=== PATIENT | male | born 1955 | race African-American/Black ===

== ENCOUNTER 2016-06-09 02:14 | Day surgery (SDC) | payer OTHER ==
[2016-06-09] MEDS ORDERED: 1/2 NS 500 ML ONE (08:21)
[2016-06-09] MEDS ORDERED: KEFZOL 1 GM/D5W 50 ML ONE (08:21)
[2016-06-09] MEDS ORDERED: NS 1,000 ML ONE ×2 (11:58→12:07)
[2016-06-09] MEDS ORDERED: HEPARIN ONE ×2 (11:58→12:06)
[2016-06-09] MEDS ORDERED: XYLOCAINE 1%/EPI 1:100,000 ONE (12:38)
[2016-06-09] MEDS ORDERED: DIPRIVAN 1% ONE (14:07)
[2016-06-09] MEDS ORDERED: FENTANYL ONE (14:11)
--- NOTE | 2016-06-09 14:49 | OPERATIVE NOTE ---
PROCEDURE DATE: 06/09/2016 PROCEDURES: Thrombectomy AV graft with revision by translocating the distal basilic vein to the venous limb of the graft. SURGEON: Fernando Soto MD. INDUSTRIAL MANUFACTURING TECHNICIAN: Kelly. PREOPERATIVE DIAGNOSIS: Thrombosis left forearm arteriovenous graft (chronic kidney disease 5). POSTOPERATIVE DIAGNOSIS: Thrombosis left forearm arteriovenous graft (chronic kidney disease 5). INDICATIONS: This is a 61-year-old who has a left forearm arteriovenous graft. The venous end is occluded and cannot be salvaged. He is sent for revision thrombectomy and revision. The preoperative imaging showed his basilic vein to be patent. A branch going down below the antecubital fossa on the ulnar side of the graft. DESCRIPTION OF PROCEDURE: After satisfactory general anesthesia was achieved, the left arm was prepped and draped in a sterile fashion. We made a vertical incision in the antecubital fossa. Dissected down to the anastomosis of the artery to the graft, and the vein to the graft. There was a cephalic vein noted. It did progress underneath the arterial limb of the graft. The sclerotic and draining vein from the venous end was also noted. We actually gave the patient 8000 units of heparin. We took the graft off the vein. We attempted to see if the cephalic vein was patent, because it came right down to the graft. We tried to pass a probe as well as a 3 Fish, and it would not traverse the cephalic vein just above the antecubital crease. The cephalic vein was not being adequate runoff vein. The basilic vein, however, had been shown to be patent up the arm by ultrasound preop. It also showed a branch going down below the antecubital crease. So, it was felt we could mobilize that branch and swing it over and translocate it over to the graft to serve as our new draining vein. So we made an incision on the ulnar side of the arm, parallel to the one that we had made in the mid antecubital crease. We identified the basilic vein and followed it down to below the elbow. The vein was marked so we would not twist it. We obtained enough length to swing over to the graft and we ligated the branches off that vein. After we had ligated the branches, we transected it distally, suture ligating the distal end. We then mobilized it up to the proximal end of the incision. I did irrigate it with heparinized saline with proximal occlusion to allow the vein to dilate and check for any bleeding points. He was hemostatic. We then passed a Judith clamp from the more medial incision to the ulnar incision and delivered the vein graft through the tunnel without twisting it. We then, after we had thrombectomized the graft using first a 3 then a 4 Fish with vigorous flow, we then cut the vein on its anterior aspect to match the length of the graft. We then used a 5-0 Prolene with HS-7 needle and attached the toe of the vein to the heel of the graft, and then used the stitch first on one side, coming around the heel of the vein and the toe of the graft and then using the other one to meet it. Just prior to finishing the anastomosis, we then allowed flow again in the graft and it remained excellent. We then finished the anastomosis and flow was established. We did feel flow in the draining vein. The anastomosis was hemostatic. We irrigated out the wounds. We then closed the subcutaneous tissue at both incisions with 3-0 Polysorb interrupted stitches. We closed the skin with each of the 4-0 Polysorb subcuticular stitch. Telfa and sterile op-sites, followed by Kerlix was applied. He tolerated it well. Was sent to the recovery room in satisfactory condition.
[2016-06-09] MEDS ORDERED: NEO-SYNEPHRINE ONE (14:59)
[2016-06-09] MEDS ORDERED: XYLOCAINE-MPF 2% ONE (14:59)
[2016-06-09] MEDS ORDERED: NS 500 ML ONE (14:59)
[2016-06-09] MEDS ORDERED: ZOFRAN IV PRN (15:26)
[2016-06-09] MEDS ORDERED: NORCO-10 PO PRN (15:26)
[2016-06-09 16:30] VITALS: BP 158/93
--- NOTE | 2016-06-12 10:57 | VASCULAR LAB ---
DATE: 06/09/2016 PROCEDURE PERFORMED: Left upper extremity duplex ultrasound of the superficial veins. REFERRING PHYSICIAN: Dr. Soto PHYSICAL THERAPY MANAGER: Dedra Marks RVT INDICATION: 1. Preoperative examination (ICD-10 Z01.818). 2. End stage renal disease (ICD-10 N18.6). FINDINGS: The patient had a dual brachial artery in the left upper extremity. The first branch of the brachial artery measured 4.5 mm. The second branch measured 5.5 mm in diameter. The basilic vein in the left medial arm measured 2.3 to 7.8 mm in diameter. In the forearm, it measured 1.0 to 2.1 mm in diameter. The left cephalic vein was not measured.
== END 2016-06-09 16:15 | disposition home or self-care (01) ==
LOC: UNDOADMIN 02:14 → SURHOLD 02:14 → OPS 02:14 → EDSTATUS 11:00 → OPS 16:15 → UNDODISIN 16:15
PROVIDERS: ATTEND Surgery
DX: T82.868A Thrombosis due to vascular prosthetic devices, implants and grafts, initial encounter (principal); E11.22 Type 2 diabetes mellitus with diabetic chronic kidney disease; I12.9 Hypertensive chronic kidney disease with stage 1 through stage 4 chronic kidney disease, or unspecified chronic kidney disease; N18.4 Chronic kidney disease, stage 4 (severe); Z99.2 Dependence on renal dialysis; E78.00 Pure hypercholesterolemia, unspecified; I25.10 Atherosclerotic heart disease of native coronary artery without angina pectoris; I25.2 Old myocardial infarction; Z95.1 Presence of aortocoronary bypass graft; Z90.3 Acquired absence of stomach [part of]; Z96.642 Presence of left artificial hip joint; Z87.11 Personal history of peptic ulcer disease; Z87.891 Personal history of nicotine dependence; Z79.84 Long term (current) use of oral hypoglycemic drugs; Z79.899 Other long term (current) drug therapy; Z79.82 Long term (current) use of aspirin; Z83.3 Family history of diabetes mellitus; Z82.49 Family history of ischemic heart disease and other diseases of the circulatory system
CPT/HCPCS: 82948; 88304; J0690; J1644; J2370; J3010; J7030; J7040

== ENCOUNTER 2016-06-11 06:44 | Emergency (ER) | payer OTHER ==
[2016-06-11 11:28] VITALS: BP 181/108
--- NOTE | 2016-06-11 11:58 | PROVIDER DOCUMENTATION ---
HPI-General Adult - General Chief Complaint: General Adult Stated Complaint: POST OP COMPLAINT Time Seen by Provider: 06/11/16 07:35 Source: patient Allergies/Adverse Reactions: Patient Allergies Allergy/AdvReac Type Severity Reaction Status Date / Time No Known Allergies Allergy Verified 06/11/16 07:26 Home Medications: Home Medication List Medication Instructions Recorded Confirmed Last Taken Type Aspirin [Aspirin EC] 81 mg PO DAILY 06/10/14 03/31/15 06/09/16 06:30 History 81 Furosemide 40 mg PO BID 06/10/14 04/05/15 06/09/16 06:30 History 40 Glipizide E.r. [Glucotrol Xl] 5 mg PO DAILY 06/10/14 04/05/15 06/09/16 06:30 History 5 LISINOpril [Prinivil] 10 mg PO DAILY 06/10/14 04/05/15 06/09/16 06:30 History 10 Pantoprazole [Protonix] 40 mg PO DAILY@0700 06/10/14 04/05/15 06/09/16 06:30 History 40 Carvedilol 25 mg PO BID 06/19/14 04/05/15 06/09/16 06:30 History 25 ATORVAstatin [Lipitor] 40 mg PO QHS 09/15/14 04/05/15 06/08/16 22:00 History 40 Calcium Carbonate Chew [Tums] 500 mg PO DAILY 03/31/15 04/05/15 06/09/16 06:30 History 500 Folic Acid/Vit Bcomp,C [Dialyvite 0.8 mg PO DAILY 03/31/15 04/05/15 06/09/16 06: 30 History 800 Tablet] 0.8 Hydrocodone/Acetaminophen [[place] 1 each PO Q4H PRN PRN #20 tablet 06/09/16 Unknown Rx 10-325 Tablet] - History of Present Illness -Gen Adult Nature of Presenting Problems: Pt is a 61 yom who came to the ED with a cc of AV fistula complications. Pt reports he had surgery on June 09, 2016. Pt reports his AV fistula is malfunctioning. Location of Pain/Injury: reports: upper extremity (left forearm AV fistula) Pain Radiation: reports: no radiation Quality of Pain: reports: none Onset/Duration: reports: unsure Timing: reports: still present Context/Activities at Onset: reports: none Modifying Factors: improves with: nothing Associated Symptoms: reports: denies symptoms Similar Symptoms Previously?: No Recently seen or treated by another doctor?: No Review of Systems - Adult - REVIEW OF SYSTEMS - ADULT Constitutional: denies: chills, fever Eyes: denies: blurred vision, double vision Cardiovascular: denies: orthopnea, poor circulation Hematologic/Lymphatic: reports: other (AV fistula). denies: low blood count, prolonged bleeding Past History - Adult - PAST MEDICAL HISTORY-ADULT Review of Records: reports: Old Records Reviewed, Nursing Assessment Review Major Childhood Illnesses: reports: denies history Cardiovascular: reports: HTN Respiratory: reports: denies history Gastrointestinal: reports: denies history Obstetrical/Gynecological: reports: denies history Genitourinary: reports: kidney disease Musculoskeletal: reports: denies history Neurological: reports: CVA Endocrine/Immune: reports: Diabetes Other Conditions: reports: denies history - PRIOR SURGERIES/PROCEDURES Surgical/Procedure History: reports: CABG, hernia repair, other (total hip replacement) - IMMUNIZATION STATUS Childhood Immunizations: See Nurse Assessment Flu Vaccine: See Nurse Assessment - FAMILY HISTORY Family History: reviewed, not pertinent Physical Exam-General - PHYSICAL EXAM-ADULT Initial Vital Signs Reviewed: Yes - CONSTITUTIONAL General Appearance: appears well, alert - EYES Eyes: PERRL/EOMI, pink conjunctivae, fundi clear, no AV nicking - HEAD, EARS, NOSE, MOUTH & THROAT HENMT: normocephalic/atraumatic, moist mucous membranes, normal ENT inspection, TMs normal, pharynx normal - NECK Neck: non-tender - RESPIRATORY Respiratory: chest non-tender, lungs clear, normal breath sounds - CARDIOVASCULAR Cardiovascular: normal peripheral pulses, regular rate, rhythm, no edema, no gallop, no JVD, no murmur - GASTROINTESTINAL (ABDOMEN) Abdominal Exam: normal bowel sounds - LYMPHATIC Lymphatic: no adenopathy - MUSCULOSKELETAL Back Exam: normal inspection Extremity: swelling, other (AV fistula) - SKIN Integumentary: normal color, normal turgor - NEUROLOGIC Neurologic: grossly normal - PSYCHIATRIC Psych/Mental Status: normal mood/affect, normal thought content, normal thought process, oriented x 3 Progress - PLAN OF CARE/RESULTS Progress/Plan/Lab Results: Vital Signs - 24 hr 06/11/16 06/11/16 06/11/16 06:52 09:25 09:44 Temperature 98.2 F Pulse Rate 77 74 66 Respiratory 18 21 21 Rate Blood Pressure 179/102 180/108 158/98 O2 Sat by Pulse 100 99 100 Oximetry 06/11/16 11:00 Temperature Pulse Rate 71 Respiratory 23 Rate Blood Pressure 181/108 O2 Sat by Pulse 99 Oximetry - REASSESSMENT Reassessment #1 Time Reassessed: 11:45 (Dr. Combs discussed with the family about the procedure and that Dr. Rankin will see him in the morning. ) Status: unchanged - CONSULTS/PCP/HOSPITALIST Notification #1 *Consult/PCP/Hospitalist*: Dr. Rankin Time Discussed: 11:43 (discussed to put on a kerlix wrap on pt and will see the pt in the morning) Reason/Comments: was made aware of pt condition Consult Disposition: F/U in office Departure - Departure Time of Disposition Order: 12:07 DIAGNOSIS: Dialysis AV fistula malfunction Qualifiers: Encounter type: initial encounter Qualified Code(s): T82.590A - Other mechanical complication of surgically created arteriovenous fistula, initial encounter Disposition: HOME 01 Certified Medical Emergency: Emergent Condition: Stable Attestation - Scribe Verification/Attestation Scribe:: Christiane Dupree Acting as Scribe for:: Jamari Combs Scribe documention review:: This chart was documented by a scribe and accurately reflects the service the provider performed and the decisions made by the provider.
== END 2016-06-11 12:47 | disposition home or self-care (01) ==
LOC: ED 06:44
DX: T82.590A Other mechanical complication of surgically created arteriovenous fistula, initial encounter (principal); I10 Essential (primary) hypertension; E11.9 Type 2 diabetes mellitus without complications; Z79.82 Long term (current) use of aspirin; Z79.899 Other long term (current) drug therapy; Z86.73 Personal history of transient ischemic attack (TIA), and cerebral infarction without residual deficits; Z95.1 Presence of aortocoronary bypass graft; Z96.649 Presence of unspecified artificial hip joint

== ENCOUNTER 2016-06-12 12:13 | Day surgery (SDC) | payer OTHER ==
[2016-06-12] MEDS ORDERED: 1/2 NS 500 ML ONE (12:48)
[2016-06-12] MEDS ORDERED: KEFZOL 1 GM/D5W 50 ML ONE (12:49)
[2016-06-12] MEDS ORDERED: REGLAN ONE (13:14)
[2016-06-12] MEDS ORDERED: PEPCID ONE (13:14)
[2016-06-12] MEDS ORDERED: HEPARIN ONE ×2 (13:57→15:40)
[2016-06-12] MEDS ORDERED: KEFZOL ONE (13:57)
[2016-06-12] MEDS ORDERED: MARCAINE 0.25% PF/EPI 1:200,000 ONE (13:57)
[2016-06-12] MEDS ORDERED: NS 2,000 ML ONE (13:57)
[2016-06-12 14:09] LABS: HEMATOCRIT 30.1 % (42.0-52.0); HEMOGLOBIN 9.6 g/dL (14.0-18.0); MCH 30.1 PG (27-31); MCHC 31.9 g/dL (33-37); MCV 94.4 FL (81-99); MPV 10.2 FL (7.4-10.4); RBC 3.19 XMIL (4.7-6.1)
[2016-06-12 14:30] LABS: CALCIUM 7.8 mg/dL (8.8-10.2); POTASSIUM 4.7 mmol/L (3.5-5.1)
[2016-06-12] MEDS ORDERED: DIPRIVAN 1% ONE (15:20)
[2016-06-12] MEDS ORDERED: XYLOCAINE-MPF 2% ONE (15:40)
[2016-06-12] MEDS ORDERED: ZOFRAN IV PRN (15:45)
[2016-06-12] MEDS ORDERED: NORCO-10 PO PRN ×2 (15:45)
[2016-06-12] MEDS ORDERED: NORCO-10 ONE (15:47)
--- NOTE | 2016-06-12 15:51 | OPERATIVE NOTE ---
PROCEDURE DATE: 06/12/2016 PROCEDURE: Thrombectomy left basilic vein and arteriovenous graft. SURGEON: Fernando Soto MD SPORTS OFFICIAL: MICHAEL Cartwright PREOPERATIVE DIAGNOSIS: Thrombosis left forearm arteriovenous graft. POSTOPERATIVE DIAGNOSIS: Thrombosis of draining left basilic vein and arteriovenous graft. DESCRIPTION OF PROCEDURE: Satisfactory general anesthesia was achieved. The left arm was prepped and draped in a sterile fashion. We anesthetized the skin 0.25 Marcaine with epinephrine and opened the mid line incision bisecting the antecubital fossa. We gave the patient 9000 units of heparin systemically. We divided the subcutaneous stitches, exposed the recently revised venous anastomosis. We made a transverse graftotomy in the ulrich of the graft. We passed a 3 Fish up into the basilic vein and extracted clot. We did that until we got back bleeding. I then dilated it again with a 2, 2.5, 3, 3.5, and even a 4 mm probe going through the anastomosis. The 3.5 was probably as big as we needed to pass through that, but it did go. We then passed the 4 Fish around through the arterial anastomosis and extracted clot until we got arterial flow, which occurred after the first passed and then even better after the second pass removing fresh clot from the graft. After extracting no more clot, we clamped off the graft with a DeBakey clamp. We then once again passed a 3 down the venous end, dilated again up to 3.5. We did get some back bleeding. We then closed the graftotomy with interrupted 6-[address] suture. Flow was established. We then irrigated out the wound with Kefzol-impregnated saline, placed 3-0 Polysorb in the subcutaneous tissue and closed the skin with a 4-0 Polysorb subcuticular stitch. Telfa and sterile OpSite was applied. He tolerated it well, was sent to the recovery room in satisfactory condition.
[2016-06-12 16:17] VITALS: BP 151/91
[2016-06-12] MEDS ORDERED: LIPITOR PO SCH (21:00)
[2016-06-12] MEDS ORDERED: CARVEDILOL 25 MG PO SCH (21:00)
[2016-06-12] MEDS ORDERED: LASIX PO SCH (21:00)
[2016-06-13] MEDS ORDERED: PROTONIX PO SCH (07:00)
[2016-06-13] MEDS ORDERED: GLUCOTROL XL PO SCH (09:00)
[2016-06-13] MEDS ORDERED: NEPHRO-VITE PO SCH (09:00)
[2016-06-13] MEDS ORDERED: TUMS PO SCH (09:00)
[2016-06-13] MEDS ORDERED: PRINIVIL PO SCH (09:00)
[2016-06-13] MEDS ORDERED: ASPIRIN EC PO SCH (09:00)
== END 2016-06-12 16:30 | disposition home or self-care (01) ==
LOC: OR 12:13
PROVIDERS: ATTEND Surgery
DX: T82.868A Thrombosis due to vascular prosthetic devices, implants and grafts, initial encounter (principal); I12.9 Hypertensive chronic kidney disease with stage 1 through stage 4 chronic kidney disease, or unspecified chronic kidney disease; N18.4 Chronic kidney disease, stage 4 (severe); E11.9 Type 2 diabetes mellitus without complications; E78.00 Pure hypercholesterolemia, unspecified
CPT/HCPCS: 80048; 85027; 88304; J0690; J1644; J7030

== ENCOUNTER 2019-02-07 18:57 | Observation (INO) ==
[2019-02-07] MEDS ORDERED: ASPIRIN PO ONE (19:15)
[2019-02-07] MEDS ORDERED: NITROGLYCERIN TOP ONE (19:34)
[2019-02-07] MEDS ORDERED: MORPHINE IV ONE (19:34)
[2019-02-07] MEDS ORDERED: ZOFRAN IV ONE (19:35)
[2019-02-07 19:44] LABS: BASO# 0.03 X1000 (0.0-0.2); BASO% 0.3 % (0.0-0.8); EOS# 0.15 X1000 (0.0-0.7); EOS% 1.6 % (0.0-10.0); HEMATOCRIT 34.9 % (42.0-52.0); HEMOGLOBIN 11.3 g/dL (14.0-18.0); IMM GRAN# 0.01 X1000 (0.0-0.04); IMM GRAN% 0.1 % (0.0-0.5); LYMPH# 0.71 X1000 (1.2-3.4); LYMPH% 7.5 % (20.5-51.1); MCH 27.9 PG (27-31); MCHC 32.4 g/dL (33-37); MCV 86.2 FL (81-99); MONO% 6.3 % (1.7-9.3); MPV 11.1 FL (7.4-10.4); NEUT# 7.98 X1000 (1.4-6.5); NEUT% 84.2 % (42.2-75.2); PLT 164 X1000 (130-400); RBC 4.05 XMIL (4.7-6.1); RDW 14.4 % (11.5-14.5); WBC 9.48 X1000 (4.8-10.8)
[2019-02-07 20:09] LABS: INR 1.15; PROTIME 15.3 Seconds (11.0-16.0)
[2019-02-07 20:10] LABS: PTT 33.1 Seconds (22.3-41.8)
--- NOTE | 2019-02-07 20:14 | PROVIDER DOCUMENTATION ---
This chart was entered by Cuca Souza Scribe, acting as scribe for José Luis Caal MD. HPI-Chest Pain - General Chief Complaint: Chest Pain Stated Complaint: N/V/ Time Seen by Provider: 02/07/19 19:16 Source: patient Allergies/Adverse Reactions: Patient Allergies Allergy/AdvReac Type Severity Reaction Status Date / Time No Known Allergies Allergy Verified 02/07/19 19:46 Home Medications: Home Medication List Medication Instructions Recorded Confirmed Last Taken Type Aspirin [Aspirin EC] 81 mg PO DAILY 06/10/14 02/07/19 07/31/18 08:00 History Glipizide E.r. [Glucotrol Xl] 10 mg PO DAILY 06/10/14 02/07/19 07/31/18 08:00 History Pantoprazole [Protonix] 40 mg PO DAILY@0700 #0 tablet 07/05/16 02/07/19 Unknown Rx Calcium Carbonate Chew [Tums] 4 tab PO DAILY 10/11/16 02/07/19 07/31/18 08:00 History Calcium Acetate 3 cap PO TID 07/31/18 02/07/19 07/31/18 21:00 History Folic Acid/Vit B Complex and C 0.8 mg PO DAILY 07/31/18 02/07/19 07/31/18 08:00 History [Dialyvite 800 Tablet] LISINOpril [Prinivil] 10 mg PO DAILY 07/31/18 02/07/19 Unknown History Amlodipine Besylate 5 mg PO DAILY 02/07/19 02/07/19 Unknown History Atorvastatin Calcium 40 mg PO DAILY 02/07/19 02/07/19 Unknown History Furosemide [Lasix] 40 mg PO DAILY 02/08/19 02/08/19 Unknown History - History of Present Illness-CP Nature of Presenting Problem: pt is a 63 yr old male presenting with complaint of substernal chest pain onset last night, resolved this AM, pain returned approx 1600 today, when pain returned pt reports nausea, vomiting, shortness of breath and diaphoresis. pt admits significant cardiac hx, had MUGA scan today. pt denies nitro, admits 1 81mg ASA today. Location: reports: substernal Chest Pain Radiation: reports: no radiation Quality of Pain: reports: sharp Severity in ED: moderate (7/10) Onset/Duration: last night Timing: intermittent Context/Activities at Onset: reports: rest Modifying Factors: improves with: nothing Associated Symptoms: reports: diaphoresis, nausea, shortness of breath, vomiting Nitro Today/Relief: no nitro taken today Aspirin Treatment Today: 81 mg x 1, provided at home Prior Chest Pain/Cardiac Workup: reports: heart attack (multiple), other (MUGA today) Similar Symptoms Previously?: No Recently Seen Here or By Another Healthcare Provider: Yes Review of Systems - Adult - REVIEW OF SYSTEMS - ADULT Constitutional: denies: chills, fever, fatique Eyes: reports: no symptoms reported Ears, Nose, Mouth & Throat: reports: no symptoms reported Cardiovascular: reports: chest pain. denies: palpitations, syncope Respiratory: reports: dyspnea on exertion, shortness of breath. denies: cough Gastrointestinal: reports: nausea, vomiting. denies: abdominal pain, diarrhea Genitourinary: reports: no symptoms reported Musculoskeletal: denies: back pain, joint pain, neck pain Integumentary: reports: no symptoms reported Neurological: reports: syncope. denies: dizziness/vertigo, headache/migraines Psychiatric: reports: no symptoms reported Endocrine: reports: no symptoms reported Hematologic/Lymphatic: reports: no symptoms reported Allergic/Immunologic: reports: no symptoms reported All Other Systems: Reviewed and Negative Past History - Adult - PAST MEDICAL HISTORY-ADULT Review of Records: reports: Old Records Reviewed, Nursing Assessment Review, Medications Reviewed, Social history reviewed & non-contributory. Major Childhood Illnesses: reports: denies history Cardiovascular: reports: CAD, HTN Respiratory: reports: denies history Gastrointestinal: reports: denies history Obstetrical/Gynecological: reports: denies history Genitourinary: reports: dialysis, kidney disease Musculoskeletal: reports: denies history Neurological: reports: CVA Endocrine/Immune: reports: Diabetes Other Conditions: reports: denies history - PRIOR SURGERIES/PROCEDURES Surgical/Procedure History: reports: CABG, hernia repair, other (total hip replacement) - IMMUNIZATION STATUS Childhood Immunizations: See Nurse Assessment Flu Vaccine: See Nurse Assessment - FAMILY HISTORY Family History: reviewed, not pertinent - SOCIAL HISTORY Smoking: quit greater than 1 year Substance Use: denies Living Situation: family Physical Exam-General - PHYSICAL EXAM-ADULT Initial Vital Signs Reviewed: Yes - CONSTITUTIONAL General Appearance: alert, no apparent distress, obese - EYES Eyes: PERRL/EOMI - HEAD, EARS, NOSE, MOUTH & THROAT HENMT: normocephalic/atraumatic, moist mucous membranes, normal ENT inspection - NECK Neck: non-tender, full range of motion, supple, normal inspection - RESPIRATORY Respiratory: chest non-tender, lungs clear, normal breath sounds, no respiratory distress, no accessory muscle use - CARDIOVASCULAR Cardiovascular: normal peripheral pulses, regular rate, rhythm, no edema - GASTROINTESTINAL (ABDOMEN) Abdominal Exam: normal bowel sounds, non tender, soft, hernia (ventral hernia) - LYMPHATIC Lymphatic: no adenopathy - MUSCULOSKELETAL Back Exam: normal inspection Extremity: normal range of motion, non-tender, normal gait, normal inspection, pedal edema (2+ bilateral edema), other (dialysis fistula left upper arm) - SKIN Integumentary: normal color, normal turgor, warm/dry - NEUROLOGIC Neurologic: grossly normal, no motor/sensory deficits - PSYCHIATRIC Psych/Mental Status: normal mood/affect, normal thought content, normal thought process, oriented x 3 Progress - PLAN OF CARE/RESULTS Progress/Plan/Lab Results: Vital Signs - 8 hr 02/07/19 19:10 02/07/19 21:45 Temperature 97.6 F 97.7 F Pulse Rate 79 70 Respiratory Rate 20 Blood Pressure 166/96 159/89 O2 Sat by Pulse Oximetry 97 99 Laboratory Results - last 24 hr 02/07/19 02/07/19 02/07/19 19:28 19:28 19:28 WBC 9.48 RBC 4.05 L Hgb 11.3 L Hct 34.9 L MCV 86.2 MCH 27.9 MCHC 32.4 L RDW Std Deviation 14.4 Plt Count 164 MPV 11.1 H Immature Gran % (Auto) 0.1 Neut % (Auto) 84.2 H Lymph % (Auto) 7.5 L [place] % (Auto) 6.3 Eos % (Auto) 1.6 Baso % (Auto) 0.3 Immature Gran # (Auto) 0.01 Neut # (Auto) 7.98 H Lymph # (Auto) 0.71 L [place] # (Auto) 0.60 H Eos # (Auto) 0.15 Baso # (Auto) 0.03 PT INR PTT (Actin FS) Sodium 136 Potassium 4.0 Chloride 97 L Carbon Dioxide 20 L Anion Gap 19 BUN 49 H Creatinine 8.5 H Estimated GFR/1.73 m2 6 BUN/Creatinine Ratio 6 Glucose 408 H* POC Glucose Calculated Osmolality 302 Calcium 9.6 Total Bilirubin 0.40 AST 16 ALT 16 Alkaline Phosphatase 93 Creatine Kinase 117 Troponin T Qxk-J-Wbifsrhnkwn Pept > 52060 H Total Protein 7.4 Albumin 4.3 Globulin 3.0 Albumin/Globulin Ratio 1.0 02/07/19 02/07/19 02/07/19 19:28 19:28 21:06 WBC RBC Hgb Hct MCV MCH MCHC RDW Std Deviation Plt Count MPV Immature Gran % (Auto) Neut % (Auto) Lymph % (Auto) Rock % (Auto) Eos % (Auto) Baso % (Auto) Immature Gran # (Auto) Neut # (Auto) Lymph # (Auto) Rock # (Auto) Eos # (Auto) Baso # (Auto) PT 15.3 INR 1.15 PTT (Actin FS) 33.1 Sodium Potassium Chloride Carbon Dioxide Anion Gap BUN Creatinine Estimated GFR/1.73 m2 BUN/Creatinine Ratio Glucose POC Glucose Calculated Osmolality Calcium Total Bilirubin AST ALT Alkaline Phosphatase Creatine Kinase 129 Troponin T 0.095 H Sqk-R-Tnslscpccop Pept Total Protein Albumin Globulin Albumin/Globulin Ratio 02/07/19 02/07/19 02/07/19 21:06 21:07 22:03 WBC RBC Hgb Hct MCV MCH MCHC RDW Std Deviation Plt Count MPV Immature Gran % (Auto) Neut % (Auto) Lymph % (Auto) [place] % (Auto) Eos % (Auto) Baso % (Auto) Immature Gran # (Auto) Neut # (Auto) Lymph # (Auto) Rock # (Auto) Eos # (Auto) Baso # (Auto) PT INR PTT (Actin FS) Sodium Potassium Chloride Carbon Dioxide Anion Gap BUN Creatinine Estimated GFR/1.73 m2 BUN/Creatinine Ratio Glucose POC Glucose 388 H D 352 H Calculated Osmolality Calcium Total Bilirubin AST ALT Alkaline Phosphatase Creatine Kinase Troponin T 0.085 Qjj-K-Zoslmrdgvvv Pept Total Protein Albumin Globulin Albumin/Globulin Ratio 02/07/19 23:14 WBC RBC Hgb Hct MCV MCH MCHC RDW Std Deviation Plt Count MPV Immature Gran % (Auto) Neut % (Auto) Lymph % (Auto) Rock % (Auto) Eos % (Auto) Baso % (Auto) Immature Gran # (Auto) Neut # (Auto) Lymph # (Auto) Rock # (Auto) Eos # (Auto) Baso # (Auto) PT INR PTT (Actin FS) Sodium Potassium Chloride Carbon Dioxide Anion Gap BUN Creatinine Estimated GFR/1.73 m2 BUN/Creatinine Ratio Glucose POC Glucose 350 H Calculated Osmolality Calcium Total Bilirubin AST ALT Alkaline Phosphatase Creatine Kinase Troponin T Myg-M-Zonnkrrjvyn Pept Total Protein Albumin Globulin Albumin/Globulin Ratio Orders Category Date Time Status Admit - [facility] Routine AdmDCTranf 02/07/19 22:47 Active Activity - Strict Bedrest ORDERED Care 02/07/19 22:46 Active Cardiac Monitoring DIRECTED Care 02/07/19 19:15 Completed Nursing- MD Consult Request 0800 Care 02/08/19 01:52 Active Oxygen Therapy- ED Nursing DIRECTED Care 02/07/19 19:15 Completed Resuscitation Status Routine Care 02/07/19 22:46 Ordered Saline Loc NOW Care 02/07/19 19:15 Completed Vital Signs Order ROUTINE Care 02/07/19 22:46 Completed Z-Document. for Tele Applied ORDERED Care 02/07/19 22:48 Active Physician/Provider Consults Routine Cons 02/08/19 01:52 Ordered NPO Diet 02/07/19 22:48 Active CHEST-2 VIEWS [RAD] Stat Exams 02/07/19 19:15 Completed CBC WITH ELECTRONIC DIFF [HEME] Stat Lab 02/07/19 19:28 Completed CK PROFILE [SP CHEM] Q4H Lab 02/08/19 01:52 Ordered CK PROFILE [SP CHEM] Q4H Lab 02/08/19 05:52 Ordered CK PROFILE [SP CHEM] Stat Lab 02/07/19 19:28 Completed CK PROFILE [SP CHEM] Stat Lab 02/07/19 21:06 Completed COMPREHENSIVE METABOLIC PANEL [CHEM] Stat Lab 02/07/19 19:28 Completed PRO B-NATRIURETIC PEPTIDE Stat Lab 02/07/19 19:28 Completed PROTIME WITH INR [COAG] Stat Lab 02/07/19 19:28 Completed PTT [COAG] Stat Lab 02/07/19 19:28 Completed TROPONIN T Lab 02/07/19 22:50 Ordered TROPONIN T Lab 02/08/19 02:50 Ordered TROPONIN T Lab 02/08/19 06:50 Ordered TROPONIN T Stat Lab 02/07/19 19:28 Completed TROPONIN T Stat Lab 02/07/19 21:06 Completed Aspirin Med 02/07/19 19:15 Discontinued 325 mg PO NOW ONE Insulin Human Regular ([place] [Humulin R ([place])] Med 02/07/19 23:14 Discontinued 1 units .ROUTE .STK-MED ONE Insulin Human Regular [Humulin R] Med 02/07/19 20:58 Discontinued 12 unit IV NOW ONE Insulin Human Regular [Humulin R] Med 02/07/19 20:51 Discontinued 19 unit IV NOW ONE Insulin Human Regular [Humulin R] Med 02/07/19 23:00 Discontinued See Protocol SUBQ Q4H Morphine Med 02/07/19 19:34 Discontinued 4 mg IV NOW ONE Nitroglycerin Med 02/07/19 19:34 Discontinued 1 inch TOP NOW ONE Ondansetron [Zofran] Med 02/07/19 19:35 Discontinued 4 mg IV NOW ONE Ondansetron [Zofran] Med 02/07/19 22:46 Active 4 mg IV Q4H PRN PRN Oxygen Device Routine Oth 02/07/19 22:48 Active Telemetry [OM.EQ] Routine Oth 02/07/19 22:46 Active EKG [EKG] Stat Ther 02/07/19 19:15 Ordered EKG [EKG] Stat Ther 02/07/19 20:35 Draft Transfer/Admit Order [TRANSFER] Routine Transfer 02/07/19 22:49 Completed Result Diagrams: 02/07/19 19:28 02/07/19 19:28 - REASSESSMENT Reassessment #1 Time Reassessed: 20:25 Status: improving Reassessment Comment: chest pain is now 3/10 - EKG 1 Time of EKG reading by physician:: 19:19 EKG Read and Signed by:: José Luis Caal EKG Interpretation (*Must complete 3 of following elements*): Abnormal (can not rule out inferior infarct, age undetermined anterior infarct-age undetermined st and t wave abnormality, consider lateral ischemia) Rate: 79 Rhythm: accelerated junctional rhythm [place]: normal QRS: normal ND Interval: prolonged 2 Time of EKG reading by physician:: 20:41 EKG Read and Signed by:: José Luis Caal EKG Interpretation (*Must complete 3 of following elements*): Abnormal (can not rule out inferior infarct-age undetermined anterior infarct-age undetermined st and t wave abnormality, consider lateral ischemia) Rate: 79 Rhythm: sinus with 1sr degree AV block [place]: normal ST Wave: non-specific ST changes - XRAY 1 XRAY Study: Chest Impression: Abnormal (Signed EXAM: CHEST-2 VIEWS INDICATION: chest pain TECHNIQUE: 2 views COMPARISON: 08/15/2019 FINDINGS: There are small linear densities seen at the peripheries of both lungs that may represent Jes B lines suggesting very mild interstitial edema. There is no discrete pleural fluid collection or pneumothorax. There are calcified hilar lymph nodes indicating prior granulomatous disease. There is cardiomegaly and there are now median sternotomy wires. Central vasculature is somewhat prominent suggesting pulmonary venous congestion. IMPRESSION: Cardiomegaly and suggestion of mild pulmonary venous congestion and minimal interstitial edema as described. Electronically signed by Conner Law 02/07/2019 8:13 PM 02/07/192012 Interpreting Physician: Conner Law MD Dictated Date/Time: 02/07/192009 cc: José Luis Caal MD; None,PCP) - CONSULTS/PCP/HOSPITALIST Notification #1 *Consult/PCP/Hospitalist*: Dr. Porter, exceptional student education aide Time Discussed: 20:45 Reason/Comments: recommend admit to hospitalist, dr. Miller at [facility] #2 Consult: Dr. Miller, hospitalist at [facility] Time Discussed: 22:00 Reason/Comments: admit to [facility] ICU Consult Disposition: Admit Departure - Departure Date of Disposition Decision: 02/08/19 Time of Disposition Decision: 01:26 DIAGNOSIS: Uncontrolled diabetes mellitus Qualifiers: Diabetes mellitus type: type 2 Glycemic state: with hyperglycemia Qualified Code(s): E11.65 - Type 2 diabetes mellitus with hyperglycemia CAD (coronary artery disease) Qualifiers: Coronary Disease-Associated Artery/Lesion type: unspecified vessel or lesion type [place] vs. transplanted heart: [place] heart Associated angina: angina presence unspecified Qualified Code(s): I25.10 - Atherosclerotic heart disease of [place] coronary artery without angina pectoris Chest pain Qualifiers: Chest pain type: unspecified Qualified Code(s): R07.9 - Chest pain, unspecified Disposition: ADMITTED INPATIENT 09 Certified Medical Emergency: Emergent Condition: Stable - Critical Care Note This patient required my direct & personal management of CC.: No Attestation - Physician/ KHLOE Attestation Patient care was provided by Advanced Practice Provider:: No The physician spent face to face time with patient:: Yes Advanced Practice Provider documentation review:: Supervising physician onsite and consulted in the evaluation and care of this patient. The physician did have a face to face encounter with the patient. This chart was documented by the indicated scribe, (Cuca Souza Scribe) and accurately reflects the services I performed and decisions made by me, José Luis Caal MD, as attested by the provider's signature.
[2019-02-07 20:41] LABS: ALBUMIN 4.3 g/dL (3.5-5.0); CALCIUM 9.6 mg/dL (8.8-10.2); CREATININE 8.5 mg/dL (0.7-1.2); TOTAL BILIRUBIN 0.4 mg/dL (0.20-1.00); TOTAL PROTEIN 7.4 g/dL (6.3-8.3)
[2019-02-07] MEDS ORDERED: HUMULIN R IV ONE ×2 (20:51→20:58)
[2019-02-07] MEDS ORDERED: ZOFRAN IV PRN (22:46)
[2019-02-07] MEDS ORDERED: HUMULIN R SUBQ SCH (23:00)
[2019-02-07] MEDS ORDERED: HUMULIN R (PARKWAY) ONE (23:14)
[2019-02-08] MEDS ORDERED: MORPHINE ONE (00:23)
[2019-02-08] MEDS ORDERED: MORPHINE IV ONE (00:24)
--- NOTE | 2019-02-08 01:00 | EKG Report ---
Test Performed on : 02/07/2019 8:41:07 PM Test Reason : pain Blood Pressure : / mmHG Vent. Rate : 079 BPM Atrial Rate : 079 BPM P-R Int : 336 ms QRS Dur : 092 ms QT Int : 434 ms P-R-T Axes : -09 -24 131 degrees QTc Int : 497 ms Sinus rhythm. with 1st degree AV block. Cannot rule out Inferior infarct (cited on or before 04-OCT-2017) Anterior infarct (cited on or before 04-JUL-2016) ST & T wave abnormality, consider lateral ischemia Abnormal ECG When compared with ECG of 07-FEB-2019 19:18, (Unconfirmed) Sinus rhythm. has replaced Junctional rhythm. Unconfirmed Result
[2019-02-08] MEDS ORDERED: LASIX IV ONE (01:58)
[2019-02-08] MEDS ORDERED: DUONEB (A & A) INH ONE (02:21)
[2019-02-08] MEDS ORDERED: LANTUS INSULIN SUBQ ONE (02:22)
--- NOTE | 2019-02-08 03:24 | HISTORY AND PHYSICAL ---
ADDENDUM: To the history and physical. The patient was brought over here via [place], here for chest pain and uncontrolled blood sugars. He also complained of shortness of breath with this whole event. His blood sugars have been 300 to 408 on average. He is a dialysis patient and he will be scheduled for dialysis later today. His troponin initially was 0.095, marginally elevated, but normal CK. His subsequent 1 has dropped to 0.085. Currently, he is chest pain-free. Exam shows JVD. Positive hepatojugular reflux. Bibasilar crepitations. Trace edema. He admits to having easy satiety and orthopnea. His x-ray also confirms my findings of some degree of pulmonary congestion, so the patient's chest pain was probably due to mild fluid overload. I have given him a dose of Lasix. He will continue with breathing treatments and further fluid can be removed via the ultrafiltration during his dialysis. I do think an A1c should be done and, if high, this patient is to sulfonylureas, which in this patient population is not really a good idea, as this can cause a high risk of the patient having hypoglycemia due to poor renal clearance. In it's place, I think this patient would be best served if he is on either 70/30 insulin or Lantus with preprandial or postprandial insulin. Cardiology needs to be consulted for further input and modification of his current medication regimen. cc: Omar Miller MD
[2019-02-08 04:35] LABS: ALBUMIN 4.5 g/dL (3.5-5.0); HEMOGLOBIN A1C 8.6 % (4.8-6.0); PHOSPHORUS 5.3 mg/dL (2.7-4.5); POTASSIUM 4.2 mmol/L (3.5-5.1)
[2019-02-08 04:37] LABS: AMYLASE 100 U/L (20-200); LIPASE 49 U/L (13-60)
[2019-02-08 04:40] LABS: CREATININE 8.4 mg/dL (0.7-1.2)
[2019-02-08] MEDS: HUMULIN R SUBQ SCH ×5 (04:40→20:55)
--- NOTE | 2019-02-08 06:47 | EKG Report ---
Test Performed on : 02/07/2019 7:18:03 PM Test Reason : chest pain Blood Pressure : / mmHG Vent. Rate : 079 BPM Atrial Rate : 079 BPM P-R Int : 000 ms QRS Dur : 094 ms QT Int : 446 ms P-R-T Axes : 000 -19 120 degrees QTc Int : 511 ms Accelerated Junctional rhythm. Cannot rule out Inferior infarct , age undetermined Anterior infarct (cited on or before 04-JUL-2016) ST & T wave abnormality, consider lateral ischemia Prolonged QT Abnormal ECG When compared with ECG of 31-JUL-2018 08:50, Significant changes have occurred Unconfirmed Result
[2019-02-08] MEDS ORDERED: HEPARIN IV PRN (08:06)
[2019-02-08] MEDS ORDERED: TIGHT: 0.2 ML/HR FOR DIALYSIS MISC PRN (08:06)
[2019-02-08] MEDS ORDERED: NS 2,000 ML MISC PRN (08:06)
[2019-02-08] MEDS ORDERED: LASIX PO SCH (09:00)
[2019-02-08] MEDS ORDERED: NORVASC PO SCH (09:00)
--- NOTE | 2019-02-08 09:23 | HISTORY AND PHYSICAL ---
PRIMARY CARE PROVIDER: Dr. Jim Fowler. CLINICAL EDUCATION MANAGER: Dr. Morales. CALENDER LET OFF HELPER: Dr. Villanueva. DATE AND TIME: 02/08/2019 at 0200. CHIEF COMPLAINT: Chest pain. HISTORY OF PRESENT ILLNESS: Mr. Kruse is a 63-year-old male who did present to the ER on 02/07/2019 at 19:10 with complaints of chest pain. The patient reports that he had recently seen Dr. Morales who had ordered him a routine MUGA scan. The patient states that he did have his MUGA scan earlier in the day at 11:45 a.m. The patient states that throughout the test he did not have any pain or symptoms. He states after he returned home that he was up moving around the house for a bit, though did begin to have left-sided chest pain that radiated down and across his chest into his right upper abdomen in the right upper quadrant area. The patient states that he had associated symptoms of dizziness, feeling lightheaded, feeling like he was going to pass out, dyspnea, diaphoresis, nausea, vomiting, and indigestion. The patient did present to the ER for further evaluation. In the ER, he was given a full dose aspirin and topical nitroglycerin and morphine. He was also found to have elevated troponin of 0.095. Though, CK was within normal limits. EKG did show a sinus rhythm with a first-degree AV block though when comparing to his most recent EKG in July 2018, there does not appear to be any acute changes at this time. I did find in a previous history [facility] [place] that he does have a history of having a first-degree heart block as well as a type 1 second-degree heart block, Wenckebach. Also noted the patient was hyperglycemic. He did have an initial serum glucose of 408. BUN was 49, creatinine was 8.5. The patient is a dialysis patient. He does receive intermittent hemodialysis on Tuesdays, , and Saturdays. The patient reports he did receive his last treatment on . He did complete the entire treatment. Upon further questioning as well the patient does report early satiety. He also reports orthopnea, proximal nocturnal dyspnea and does have some trace edema noted in bilateral lower extremities. He also does have JVD with a positive hepatojugular reflex. He reports that for the past 2 to 3 months he has been having to sleep in a recliner. Dr. Caal, who was the ER physician at [facility] did consult Dr. Hutton with Cardiology. Given the patient's symptoms and his history of coronary artery disease, he did recommend to admit to hospitalist at [facility]. The patient otherwise denied any headache, cough. He denies any abdominal pain, though did have some generalized mild abdominal tenderness upon palpation. He denied any diarrhea, dysuria or urinary frequency. The patient states that he still does produce some urine. He did report that he had noticed some swelling in his lower extremities. Other than this, he did not report any new pain, numbness, or tingling in extremities. The patient does report that he does have some residual left upper extremity weakness from a previous stroke in 2012. He also denied any hematemesis, hematochezia or melena. REVIEW OF SYSTEMS: A 14 point review of systems was conducted with the patient. All were negative except for pertinent positives mentioned in the HPI. PAST MEDICAL HISTORY: 1. Coronary artery disease status post four-vessel coronary artery bypass graft in 2012. 2. History of myocardial infarction in 2012. 3. Ischemic cardiomyopathy with a last known ejection fraction of 40 to 45 percent on echocardiogram in October 2018. 4. History of bradycardia. 5. History of first degree heart block. 6. History of second-degree heart block type 1 Wenckebach. 7. History of hypertension. 8. History of hyperlipidemia. 9. History of diabetes mellitus type 2. 10. 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 11. End-stage renal disease, on intermittent hemodialysis on Tuesdays, , and Saturdays, followed by Dr. Villanueva. 12. History of an umbilical hernia. 13. History of gastric ulcers. PAST SURGICAL HISTORY: 1. Umbilical hernia repair. The patient's umbilical hernia has since returned. 2. Left hip replacement. 3. Left dialysis shunt placement x2. 4. Gastroscope with cauterization of bleeding ulcer. 5. Left arm surgery for rotator cuff repair. SOCIAL HISTORY: The patient is , his was present at bedside during my examination. He is a former smoker. He did smoke 1 pack per day for 30 years, though quit smoking in 2012. Though he does not drink presently, the patient states that previously in the past he would drink occasionally several beers at a time, though has not had any alcohol in awhile. There is no known history of illicit drug use. FAMILY HISTORY: The patient denies any family medical history. ALLERGIES: Patient has no known allergies. HOME MEDICATIONS: 1. Amlodipine 5 mg p.o. daily. 2. Aspirin 81 mg p.o. daily. 3. Atorvastatin 40 mg p.o. daily. 4. Calcium acetate 667 mg capsule, 3 capsules p.o. 3 times a day. 5. Dialyvite 800 mg tablet 1 p.o. daily. 6. Lasix 40 mg p.o. daily. 7. Glucotrol 10 mg p.o. daily. 8. Lisinopril 10 mg p.o. daily. 9. Protonix 40 mg p.o. daily. DIAGNOSTIC DATA/LABORATORY RESULTS: White blood cell count is 9480, hemoglobin 11.3, hematocrit 34.9, platelet count is 164,000. PT 15.3, INR 1.15, PTT is 33.1. Sodium 136, potassium 4, chloride 97, serum bicarbonate is 20, BUN 49, creatinine 8.5 with a GFR of 6. Glucose initial serum was 408, though most recent recheck was 276, calcium 9.6, magnesium 2. Liver function tests within normal limits. CK 117. Troponin 0.095. ProBNP is greater than 35,000. Amylase 100, lipase 49. EKG did show a sinus rhythm with a first-degree AV block. When compared to previous EKG in July 2018 there did not appear to be any acute changes though on the patient's cardiac telemetry it did appear that the patient might be having a second degree heart block, Mobitz type 2 though this was difficult to discern. The P wave at times does appear to be hidden within the T-wave, though it is at least a second-degree heart block. The patient's heart rate is maintaining in the 50s to 60s, though telemetry did report it briefly did dip into the high 40s at one time, though the patient's heart rate did improve. He is not symptomatic. Chest x-ray showed cardiomegaly and suggestion of mild pulmonary edema and venous congestion and minimal interstitial edema as described. This is per Radiology. PHYSICAL EXAMINATION: VITAL SIGNS: Temperature 98.3 degrees, heart rate 81, respirations 18, blood pressure is 156/91, oxygen saturation is 99% on room air. GENERAL: Mr. Kruse is a 63-year-old male. He was resting in the inpatient bed. He was in no acute distress. He was awake, alert, and able to answer questions appropriately. HEENT: Head is atraumatic, normocephalic. Pupils are equal, round, reactive to light, were 3 mm bilaterally and brisk. Oral mucosa was moist. Oropharynx was clear. NECK: Supple. Trachea midline. The patient did have JVD noted. He also did have a positive hepatojugular reflex. CARDIOVASCULAR: Patient has S1, S2 present. No murmurs, gallops, rubs appreciated with a rate that is slightly bradycardic at times in the high 50s. He does have a regular rhythm palpated and auscultated. PULMONARY: The patient has symmetrical chest expansion bilaterally. Lung sounds in upper reinoso were clear to auscultation. He does have crackles noted in bilateral bases. ABDOMEN: Soft, does appear to be slightly distended. He reports some generalized tenderness in his abdomen though was reported reporting right upper quadrant pain. Bowel sounds were present in all 4 quadrants, were normoactive. EXTREMITIES: No cyanosis noted but the patient did have some trace edema noted in bilateral lower extremities from approximately mid calf down. Pedal pulses were difficult to auscultate though were easily obtained with venous Doppler. Radial pulses were 2+ bilaterally. The patient did have a good thrill palpated over his left dialysis shunt. INTEGUMENTARY: The patient's skin color is normal for his race, is dry and intact. NEUROLOGICAL: Patient is alert and oriented to person, place, time, and situation. He does report some residual left-sided weakness from a previous stroke in 2012, though other than this, he does not report any new pain, numbness, tingling or weakness in extremities. There are no focal neurological deficits noted. ASSESSMENT AND PLAN: 1. Chest pain. At this time, the patient's chest pain has subsided though he is still reporting some right upper quadrant pain. This could be secondary to his pulmonary edema and mild fluid volume overload. We are going to give the patient a one time dose of 80 mg of Lasix IV. We will place consults with Cardiology and Nephrology. We will continue with the series of cardiac enzymes. We will do a repeat EKG in the morning. We will continue his regularly prescribed cardiac medications of Norvasc 5 mg p.o. daily, 81 mg aspirin p.o. daily and lisinopril 10 mg p.o. daily. We will do strict intake and output. He has been placed on PVC for close monitoring. We will await Cardiology's evaluation and continue to follow. 2. Pulmonary edema. We will continue with treatment as mentioned above. We will continue to follow along. Though the patient was reporting some dyspnea he is not having any respiratory distress at this time. We will continue to follow closely. 3. End-stage renal disease, on intermittent hemodialysis on Tuesdays, , and Saturdays. We have placed a consult with Dr. Villanueva. We will await his evaluation and further recommendations for management. 4. Diabetes mellitus type 2. We have held the patient's glipizide. He will be placed on a sliding scale insulin. We will do pattern fingerstick blood sugars. We will continue to follow. 5. History of coronary artery disease, status post four-vessel coronary artery bypass graft. 6. History of ischemic cardiomyopathy. 7. Deep vein thrombosis prophylaxis is provided with heparin 5000 units subcutaneously q.12 hours. The patient has been placed in the PVC unit for close monitoring. He will be on continuous cardiac telemetry. He will have vital signs q.4 hours. We will do strict intake and output. He will be on a diabetic and heart healthy diet. We will complete a series of cardiac enzymes. We have also ordered for him to have a repeat renal profile, hemoglobin A1c and a lipid profile this morning. Further orders and recommendations pending hospital course, diagnostic studies, and physician evaluation. Dictated by CATHY Rodriguez for Omar Miller MD cc: Omar Miller MD [facility]
[2019-02-08] MEDS: HEPARIN SUBQ SCH ×3 (09:27→20:55)
[2019-02-08] MEDS: ASPIRIN EC PO SCH ×2 (09:27→14:06)
[2019-02-08] MEDS: LIPITOR PO SCH ×2 (09:27→14:06)
[2019-02-08] MEDS: PHOSLO PO SCH ×3 (09:28→17:32)
[2019-02-08] MEDS: NEPHRO-VITE PO SCH ×2 (09:28→14:05)
[2019-02-08] MEDS: PRINIVIL PO SCH ×2 (09:28→14:06)
[2019-02-08] MEDS: NORVASC PO SCH ×2 (09:28→14:05)
--- NOTE | 2019-02-08 10:18 | EKG Report ---
Test Performed on : 02/08/2019 06:10:15 AM Test Reason : Chest Pain Blood Pressure : / mmHG Vent. Rate : 052 BPM Atrial Rate : 079 BPM P-R Int : 000 ms QRS Dur : 090 ms QT Int : 542 ms P-R-T Axes : 061 023 124 degrees QTc Int : 504 ms Critical Test Result: AV Block Sinus rhythm. with 2nd degree AV block (Mobitz I). T wave abnormality, consider lateral ischemia Prolonged QT Abnormal ECG When compared with ECG of 07-FEB-2019 20:41, (Unconfirmed) Sinus rhythm. is now with 2nd degree AV block (Mobitz I). Vent. rate has decreased BY 27 BPM Minimal criteria for Inferior infarct are no longer present T wave inversion less evident in Lateral leads Unconfirmed Result
--- NOTE | 2019-02-08 14:03 | PROGRESS NOTE ---
DATE: 02/08/2019 SUBJECTIVE: This morning Mr. Kruse refers to be doing well. He denies any new pains. No chest pain and no abdominal pain. OBJECTIVELY: Vitals: Blood pressure is 136/91, pulse of 53, respirations 23, temperature 97.6 degrees. General: Mr. Kruse is a 63-year-old gentleman. He was in bed during dialysis. He was not in any distress. HEENT: Mucosa was pink and moist. Anicteric. Acyanotic. Neck: Supple. Chest: Good air entry bilateral. There were no crepitations, no rhonchi. Cardiovascular: Regular rate and rhythm. There were no murmurs, no rubs, no gallops. GI: Abdomen was soft, distended, but nontender. Bowel sounds were present. Extremities: No pedal edema. WATER TREATMENT OPERATOR: Patient was awake, alert, oriented. There is no focal neurological deficit. LABORATORY DATA: CBC reviewed. There is mild normocytic anemia. Chemistry is also reviewed. The patient has changes of end-stage renal disease. Glucose was 331 with A1c of 8.6. The patient's troponin on admission was 0.095. It dropped slightly, but then on the subsequent 2 readings, it has actually been going up. A left heart catheterization report in July of this year seems to suggest mixed LAD and circumflex lesions. There is a report that his LOKESH vein graft to the RCA and the vein graft to the OM are patent and seems to be without any significant lesions. ASSESSMENT: 1. Acute chest pain associated with elevated troponin, concerning for non STEMI in a patient with remarkable cardiac history. The patient is currently on aspirin, Lipitor. Cardiology is on board and will follow up with further recommendations from them. 2. Endstage renal disease, on hemodialysis Tuesdays, , and Sunday. The patient was going through a dialysis session at the time of the encounter. Nephrology is on board. 3. Hypertension, on lisinopril. 4. Diabetes mellitus presenting A1c of 8.6 with hyperglycemia. We will start the patient on Lantus for now. I think in the long-term he will probably be okay on 70/30. For now, it will be long-acting with preprandial and sliding scale. cc: Vineet Jefferson MD
[2019-02-08] MEDS: LASIX PO SCH (14:06)
--- NOTE | 2019-02-08 16:25 | CARDIOLOGY CONSULTATION ---
DATE: 02/08/2019 CONSULTATION REQUESTED BY: Hospitalist Service. REASON FOR CONSULTATION: Chest pain. HISTORY: Mr. Kruse is a pleasant, 63-year-old, black gentleman, who is a patient of Meet Morales. The patient states that he was in his usual state of health. In the morning, he came in to the hospital for a nuclear imaging study, MUGA scan, that had been requested by Dr. Morales. After returning home, he ate lunch. He said that he had some patrick for breakfast. After lunch, which he ate at about 1 p.m., he felt somewhat sick to his stomach, and at about 4 p.m., he started to vomit. He vomited 3 times and after vomiting 3 times, then he developed pain in the left upper chest that was unlike previous symptoms that he has had in connection with his coronary heart disease. However, because he felt poorly, he decided to come to the emergency room. In the ER, they checked troponin levels and they were elevated. The first one was 0.095, then 0.085, then 0.144, and 0.238. His EKGs showed a nonspecific ST abnormality, and this morning, his EKG shows a sinus rhythm with a second-degree AV block of the Wenckebach type. This is not a new finding. Dr. Morales has noted this before. His blood sugar was 408 when he first presented. Also of note, his creatinines have been consistently higher than what they have been in the past. In addition, his CO2 was also low when he first came in. That may suggest that he is perhaps not optimally dialyzed. He says that he has gained 15 pounds for the past year or so. He has a good appetite. At any rate, overnight, he has not experienced any further complaints. This morning, he is feeling fine. He is undergoing hemodialysis. I am seeing him at about 11 a.m. He just feels comfortable and he wishes to be discharged. PAST HISTORY: Significant for end-stage renal disease. He has been on dialysis for the past 6 years. He has history of hypertension. He has diabetes mellitus type 2, hyperlipidemia. He has been noted to have bradycardia before. He has had a stroke in the past with left arm weakness. He has been treated by Dr. Avalos in the past. In 2012, the patient was found to have severe coronary heart disease and underwent a coronary artery bypass procedure. SURGICAL HISTORY: Includes a hernia removed, hip replacement. He has had 2 dialysis grafts created, one in the left forearm and subsequently in the left arm which is the one that is currently used. He had gastroscopic evaluation with cauterization of a bleeding ulcer. He has had the coronary artery bypass procedure x4, back in 2012, Dr. Dang in [place]. He had a mammary graft to LAD, a vein graft to D1, and vein graft to OM3, as well as a vein graft to the distal right coronary artery. A heart catheterization was done in 2016, to follow up his case because of evaluation for renal transplantation and a dobutamine stress echo done at that time came back normal. The heart catheterization performed on him in June 2016, revealed that his vein graft to the diagonal had become occluded and the mammary graft, vein graft to RCA and vein graft to the circumflex were patent. Subsequently, Dr. Morales has performed a followup heart catheterization on 08/01/2018, that showed that the 3 grafts are still open. He does have disease inside branches of the LAD, specifically the diagonal, which is the most seriously affected. The circumflex branches and also the distal right coronary artery branches show diffuse disease. REVIEW OF SYSTEMS: Really positive for just feeling generally somewhat tired. He normally does not get angina pectoris or chest pain. Vomiting is uncommon for him. He may have eaten too much fat yesterday. HOME MEDICATIONS: He is on amlodipine 5 mg daily, aspirin 81 daily, atorvastatin 40 daily, calcium acetate 3 capsules 3 times a day, folic acid with vitamin B complex, furosemide 40 mg daily, glipizide 10 mg daily, lisinopril 10 mg daily, Protonix 40 mg daily. PHYSICAL EXAMINATION: Blood pressure 136/91, temperature 97.6 degrees, pulse 66, respirations 23. He is awake, alert, oriented, in no distress.HEENT: Unremarkable. Chest: Sounds clear to auscultation and percussion. Heart: Sounds are regular and rhythmic. He does have frequent extrasystoles. It sounds like he has a clicking sound. Abdomen: Nontender. Extremities: No significant edema. Neurologic: Nonfocal. Moves all 4 extremities. DIAGNOSTIC DATA: Additional studies include a chest x-ray that was done yesterday, shows cardiomegaly, suggestion of mild pulmonary venous congestion and minimal interstitial edema. IMPRESSION: 1. Patient who presented to the hospital with real atypical chest discomfort. However, he has some elevation in troponin. There is a concern for [id number] myocardial infarction. 2. History of severe coronary heart disease, previous bypass surgery x4 vessels in 2013, with occlusion of a diagonal branch of the left anterior descending documented in 2017. He may be at risk of progression of disease. 3. History of hypertension. 4. History of hyperlipidemia. 5. History of diabetes mellitus type 2. 6. End-stage renal disease, on hemodialysis. RECOMMENDATIONS: At this time, I would suggest conservative approach. I will continue to monitor EKGs and troponins over the next 48 hours. I do not believe that this patient has really developed any change in his coronary status. This really sounds more like stomach upset from whatever reason, indigestion or so forth. If no significant abnormalities are noted within the next 24 to 48 hours, I believe the patient can be discharged home with instructions to follow up with Dr. Meet Morales at the office. cc: Ye Hutton MD
--- NOTE | 2019-02-08 17:00 | NEPHROLOGY CONSULTATION ---
DATE: 02/08/2019 REASON FOR CONSULTATION: Assessment and management of end-stage kidney disease. HISTORY OF PRESENT ILLNESS: Mr. Kruse is a 63-year-old man who is well known to us. He dialyzes in our outpatient unit on Sunday, and Sunday. He attended his routine treatment on . After that time he developed nausea, vomiting, dyspepsia and ultimately chest pain on yesterday. No significant shortness of breath. No diaphoresis, cough, sputum, chills, fevers etc. His initial evaluation in the emergency room disclosed blood pressure of 166/96. His initial CK was 117 and the pattern has been negative. Initial troponin elevated at 0.095. Some rise in troponin since admission. Because of this, he was admitted for possible acute coronary syndrome. PAST MEDICAL HISTORY: Diabetes, hypertension, hyperlipidemia, coronary artery disease, history first-degree AV block. ALLERGIES: None. HOME MEDICATIONS: Include amlodipine, aspirin, atorvastatin, calcium acetate, Dialyvite, Lasix, Glucotrol, lisinopril, Protonix. SOCIAL HISTORY: He is . Lives with his . No alcohol or tobacco. Former smoker. FAMILY HISTORY: Otherwise noncontributory. REVIEW OF SYSTEMS: Otherwise noncontributory. PHYSICAL EXAMINATION: Vital Signs: Blood pressure 136/91, heart rate 56, respirations 23, afebrile. General: No acute distress. Skin: Warm and dry. Conjunctivae are pink, moist. Pupils equal, round. Oropharynx clear. Normal tongue. Normal teeth. Neck: Supple. Trachea is midline. No jugular venous distention. Heart: PMI nondisplaced. Regular rate and rhythm without murmurs, rubs, or gallops. Lungs: Have equal excursion, equal breath sounds. No crackles or wheezes. Abdomen: Soft, nontender. Bowel sounds present. Extremities: No edema, clubbing or cyanosis. IMPRESSION: 1. Chronic kidney disease 5D. He is currently receiving his routine hemodialysis treatment. We will use his outpatient dry weight and outpatient prescription. 2. Electrolytes/acid base/volume status/anemia all in target. 3. Hypertension improved. 4. Medication review: No changes are required. cc: Abhishek Villanueva MD
[2019-02-08] MEDS: HUMALOG SUBQ SCH (17:32)
[2019-02-09] MEDS: PROTONIX PO SCH (05:59)
--- NOTE | 2019-02-09 06:19 | EKG Report ---
Test Performed on : 02/09/2019 07:14:17 AM Test Reason : non ST MD/ESRD Blood Pressure : / mmHG Vent. Rate : 076 BPM Atrial Rate : 076 BPM P-R Int : 426 ms QRS Dur : 086 ms QT Int : 516 ms P-R-T Axes : 071 -43 140 degrees QTc Int : 580 ms Critical Test Result: Long QTc Sinus rhythm. with 1st degree AV block. Left axis deviation ST & T wave abnormality, consider lateral ischemia Abnormal ECG When compared with ECG of 08-FEB-2019 06:10, (Unconfirmed) Sinus rhythm. is no longer with 2nd degree AV block (Mobitz I). T wave inversion more evident in Anterolateral leads QT has lengthened Unconfirmed Result
[2019-02-09] MEDS: HUMULIN R SUBQ SCH (06:28)
[2019-02-09 07:00] LABS: CALCIUM 9.1 mg/dL (8.8-10.2); CREATININE 7.8 mg/dL (0.7-1.2); POTASSIUM 3.8 mmol/L (3.5-5.1)
[2019-02-09] MEDS: PHOSLO PO SCH ×3 (07:23→16:23)
[2019-02-09] MEDS: ASPIRIN EC PO SCH (08:35)
[2019-02-09] MEDS: NORVASC PO SCH (08:35)
[2019-02-09] MEDS: LIPITOR PO SCH (08:35)
[2019-02-09] MEDS: PRINIVIL PO SCH (08:35)
[2019-02-09] MEDS: NEPHRO-VITE PO SCH (08:35)
[2019-02-09] MEDS: HEPARIN SUBQ SCH ×2 (08:35→20:45)
[2019-02-09] MEDS: LASIX PO SCH (09:14)
--- NOTE | 2019-02-09 09:45 | PROGRESS NOTE ---
DATE: 02/09/2019 SUBJECTIVE: This morning Mr. Kruse refers to be doing a whole lot better. He was actually sitting up in a chair at the time of the encounter. He denies any chest pain, no shortness of breath. He has not had any bowel movement yet. OBJECTIVE: Vital signs: Blood pressure is 107/63, pulse of 71, respirations 17, temperature 98.9 degrees. General: Mr. Kruse is a 63-year-old gentleman. He was in bed, no distress. HEENT: Mucosa is pink and moist. Anicteric. Acyanotic. Neck: Supple. Chest: Clear to auscultation. No crepitations. No rhonchi. Cardiovascular: Regular rate and rhythm. GI: Abdomen was soft distended but nontender. There is a mild supraumbilical hernia defect. Extremities: No pedal edema. DEPUTY K 9: Patient is awake, alert, and oriented. LABORATORY DATA: The chemistry is consistent with renal failure. Patient's troponin has gone up to 0.501. EKG, however, has not shown any changes. Still has normal sinus rhythm with first- degree heart block. There is some mild T-waves inversion in the lateral leads, which is not new. ASSESSMENT: 1. Chest pain on admission associated with elevated troponin, concerning for non ST- elevation myocardial infarction. The patient is on oral medication, has been evaluated by Cardiology. Unfortunately, the troponin has elevated slightly this morning. Will be pending further recommendations. 2. Endstage renal disease. Patient is on dialysis Sunday, , and Sunday. He was dialyzed yesterday. Nephrology is on board. 3. Diabetes mellitus with presenting A1c of 8.6, stable. 4. Hypertension controlled. 5. Constipation will continue addressing with bowel regimen. 6. History of coronary artery disease status post coronary artery bypass grafting in the past. PLAN: So in general Mr. Tellez is clinically stable. He denies any new pains and no abdominal discomfort. His EKG remains unchanged. His troponin, however, has gone from 0.23 to 0.5. We are going to continue with the current medications and will be pending further recommendations from Cardiology. cc: Vineet Jefferson MD
[2019-02-09] MEDS: HUMALOG SUBQ SCH ×6 (09:49→20:33)
[2019-02-09] MEDS: LANTUS INSULIN SUBQ SCH (09:49)
--- NOTE | 2019-02-09 11:35 | CARDIOLOGY PROGRESS NOTE ---
DATE: 02/09/2019 CHIEF COMPLAINT: Chest pain, nausea and vomiting. SUBJECTIVE: Mr. Kruse is feeling better today. He is not having any further complaints. He is up and about. OBJECTIVE: Temperature 98.9, pulse 71, respirations 17, blood pressure 107/63. The patient is awake and alert, sitting upright. HEENT is unremarkable. Chest clear to auscultation and percussion. Heart sounds regular and rhythmic. No gallop or murmur. Abdomen is nontender. Extremities showed no edema. Neurologic: Follows commands. Moves all 4 extremities. DIAGNOSTIC DATA: He has sinus rhythm with first degree AV block, nonspecific ST-T abnormality. Telemetry shows the presence of second degree AV block Wenckebach pattern. shelter monitor also showed 8-beat run of ventricular tachycardia. In addition, his troponin level today shows that it has gone up to 0.501. His sodium is 141, potassium 3.8, BUN is 37, creatinine 7.8. IMPRESSION: 1. The patient presented to the hospital with nausea, vomiting and atypical chest discomfort. 2. Possible non-ST myocardial infarction. 3. End stage renal disease on hemodialysis. 4. Severe coronary heart disease with previous bypass surgery with stable coronary anatomy as noted in 07/2018. He has patent mammary graft to LAD, patent vein graft to right coronary artery and patent graft to circumflex. He has severe disease in the diagonal branch which is a small vessel. All of his arteries are calcified. 5.He has diabetes mellitus type 2. 6. Second Degree AV Block Wenckebach type I (Benign). RECOMMENDATIONS: At this point in time, because the troponin is going up and he has had 1 run of ventricular tachycardia with Wenckebach pattern, I would suggest to follow him one more day in the hospital to make sure that he is clinically stable. We will recheck troponins and EKG in the morning. If he is stable, he may get to go home tomorrow. cc: MD SAMMIE Langston
[2019-02-09] MEDS: MIRALAX PO SCH (16:23)
[2019-02-10 06:01] LABS: BASO# 0.04 X1000 (0.0-0.2); BASO% 0.5 % (0.0-0.8); EOS# 0.44 X1000 (0.0-0.7); EOS% 5.3 % (0.0-10.0); HEMATOCRIT 33.9 % (42.0-52.0); HEMOGLOBIN 10.5 g/dL (14.0-18.0); LYMPH# 1.21 X1000 (1.2-3.4); LYMPH% 14.7 % (20.5-51.1); MCH 27.7 PG (27-31); MCV 89.4 FL (81-99); MONO# 1.03 X1000 (0.11-0.59); MONO% 12.5 % (1.7-9.3); MPV 10.6 FL (7.4-10.4); NEUT# 5.52 X1000 (1.4-6.5); PLT 174 X1000 (130-400); RBC 3.79 XMIL (4.7-6.1); RDW 14.9 % (11.5-14.5); WBC 8.24 X1000 (4.8-10.8)
[2019-02-10] MEDS: HUMALOG SUBQ SCH ×4 (06:09→12:04)
[2019-02-10] MEDS: PROTONIX PO SCH (06:21)
[2019-02-10 06:43] LABS: ALBUMIN 3.9 g/dL (3.5-5.0); CALCIUM 8.7 mg/dL (8.8-10.2); CREATININE 9.8 mg/dL (0.7-1.2); PHOSPHORUS 4.9 mg/dL (2.7-4.5); POTASSIUM 4.4 mmol/L (3.5-5.1)
--- NOTE | 2019-02-10 07:32 | EKG Report ---
Test Performed on : 02/10/2019 07:52:59 AM Test Reason : Chest pain/non ST PA Blood Pressure : / mmHG Vent. Rate : 054 BPM Atrial Rate : 083 BPM P-R Int : 000 ms QRS Dur : 090 ms QT Int : 484 ms P-R-T Axes : 043 -18 132 degrees QTc Int : 458 ms Critical Test Result: AV Block Sinus rhythm. with 2nd degree AV block (Mobitz I). Cannot rule out Inferior infarct , age undetermined Abnormal ECG When compared with ECG of 09-FEB-2019 07:14, (Unconfirmed) Sinus rhythm. is now with 2nd degree AV block (Mobitz I). Nonspecific T wave abnormality, improved in Anterolateral leads QT has shortened Unconfirmed Result
[2019-02-10] MEDS: HEPARIN SUBQ SCH (08:19)
[2019-02-10] MEDS: NEPHRO-VITE PO SCH (08:19)
[2019-02-10] MEDS: LIPITOR PO SCH (08:19)
[2019-02-10] MEDS: NORVASC PO SCH (08:19)
[2019-02-10] MEDS: PRINIVIL PO SCH (08:19)
[2019-02-10] MEDS: PHOSLO PO SCH ×2 (08:19→12:03)
[2019-02-10] MEDS: MIRALAX PO SCH (08:19)
[2019-02-10] MEDS: LASIX PO SCH (08:19)
[2019-02-10] MEDS: LANTUS INSULIN SUBQ SCH (08:20)
[2019-02-10] MEDS: ASPIRIN EC PO SCH (08:20)
[2019-02-10] MEDS ORDERED: LACTULOSE PO SCH (09:00)
--- NOTE | 2019-02-10 10:52 | CARDIOLOGY PROGRESS NOTE ---
DATE: 02/10/2019 CHIEF COMPLAINT: Nausea, vomiting and chest pain. SUBJECTIVE: Mr. Kruse has had an uneventful weekend. He has not experienced any further chest pains. No nausea. He is just constipated. He is up and about. OBJECTIVE: Blood pressure is 122/91, temperature 98.4, pulse 65, respirations 17. He is awake, alert, no distress. HEENT is normal. Chest sounds clear to auscultation and percussion. Heart sounds are regular and rhythm. I do not hear a gallop or murmur. His abdomen is nontender, obese. Extremities showed no edema. Neurologic: Follows commands, moves all 4 extremities. Gait is normal. DIAGNOSTIC DATA: Blood work today shows sodium of 138, potassium 4.4, BUN went up to 50, creatinine went up to 9.8. Troponin is coming down to 0.495. EKG today shows sinus rhythm with a Wenckebach pattern, that is his usual. ASSESSMENT: 1. The patient presented to the hospital with atypical chest discomfort. There is elevation of troponin. Really, this seems to be nonspecific. 2. Severe coronary heart disease with previous bypass surgery with occlusion of diagonal branch graft. There is underlying severe multivessel disease. 3. Abnormal EKG with a Wenckebach pattern, second degree AV block type 1, Mobitz 1. 4. History of hypertension. 5. History of diabetes mellitus type 2. 6. End stage renal disease on hemodialysis. RECOMMENDATIONS: At this time, from my viewpoint, the patient seems to be stable. I do not believe that we need to do any further testing. We will arrange for a followup with our office. At this time, the only concern that I would convey to the Nephrology Service is whether or not his dialysis is efficient given the upward trend of creatinine levels. We will discuss that with Dr. Villanueva and associates. cc: Ye Hutton MD
[2019-02-10 11:09] VITALS: BP 137/58
--- NOTE | 2019-02-10 12:57 | NEPHROLOGY PROGRESS NOTE ---
DATE: 02/10/2019 Subjective: patient lying in bed awake. Voices feeling constipated. No uremic complaints noted. Objective: vitals. Temperature 98.4, pulse 65, respirations 17, blood pressure 122/91, 02 sat 100% on room air. General: Elderly male lying in bed in no acute distress HEENT: Normocephalic, atraumatic. Trachea midline. Pupils equal and reactive to light. Skin: warm, dry and intact. Neck: Supple, visible JVD in erect position. Cardiovascular: S1, S2. Regular rate and rhythm, no murmurs or gallops. Respiratory: lungs clear anteriorly with equal air excursion. Abdomen: soft, Nontender. Mildly distended. Hypoactive bowel sounds. : non-inspected. Extremities: no clubbing, cyanosis. 1 + pitting to BLE Neurologic: Alert and oriented to person, place, and time. Labs: WBC 8.24, hemoglobin 10.5, Hematocrit 33.9, platelet count 174, sodium 138, potassium 4.4, chloride 93, carbon dioxide 25, anion gap 20, BUN 50, creatinine 9.8, calcium 8.7, troponin 0.495. Intake 600, output zero. Impression: Chronic kidney disease stage 5D. He is on a Sunday, , Sunday schedule. He will receive his routine treatment tomorrow and in the case he is discharged, he will continue his schedule in the outpatient clinic. Electrolytes and acid base balance. In target. Anemia. Low but stable. Does not meet transfusion criteria. Blood pressure. In target. Medication review. No changes at this time. cc: MD SAMMIE Gomez
--- NOTE | 2019-02-11 13:42 | DISCHARGE SUMMARY ---
ADMISSION DATE: 02/07/2019 DISCHARGE DATE: 02/10/2019 DISPOSITION: Home. FOLLOW-UP: 1. Dr. Meet Morales. 2. Dr. Villanueva. INVASIVE PROCEDURES DONE DURING ADMISSION: None. IMAGING STUDIES OF SIGNIFICANCE: A chest x-ray on 02/07/2019 shows cardiomegaly and suggestion of mild pulmonary venous congestion, minimal atelectasis, and edema. ADMISSION DIAGNOSES: 1. Chest pain. 2. Pulmonary edema. 3. Endstage renal disease. 4. Diabetes mellitus. 5. Coronary artery disease. 6. Ischemic cardiomyopathy. DIAGNOSES AT TIME OF DISCHARGE: 1. Chest pain on admission associated with elevated troponin concerning for non STEMI. The patient was evaluated by Cardiology. 2. History of coronary artery disease status post bypass surgery. 3. Endstage renal disease on hemodialysis Tuesdays, and Saturdays. 4. Hypertension. 5. Constipation. DISCHARGE MEDICATIONS: 1. Aspirin 81 mg p.o. daily. 2. Pantoprazole 40 mg p.o. daily. 3. Folic Acid. 4. Lisinopril 10 mg p.o. daily. 5. Atorvastatin 40 mg p.o. daily. 6. Amlodipine 5 mg p.o. daily. 7. Lasix 40 mg p.o. daily. 8. Insulin 10 units subcutaneous daily. PRESENTING COMPLAINT: Chest pain. HISTORY OF PRESENTING COMPLAINT: Mr. Tellez is a 63-year-old gentleman who follows up with Dr. Morales and Dr. Villanueva on an outpatient basis who came into the emergency department because of chest discomfort. He is known to have ischemic heart disease status post CABG in the past. Upon presenting, his evaluation revealed that his troponin was 0.1441, went up to 0.23, and maximized at 0.501 Mr.. Kruse was admitted to [facility] for further medical care. HOSPITAL COURSE: Mr. Kruse was evaluated by Cardiology, Dr. Hutton. He was also seen by Dr. Villanueva. He did undergo his regular dialysis session during the hospital course. Cardiology did not think that we needed to do any more invasive testing while the patient was in the hospital after the review his previous imaging studies. Mr. Kruse continued to be remarkably asymptomatic. During the hospital course, chest pain has resolved. Yesterday, his troponin was still high so Cardiology recommended to observe him one more day. Today, it seems to be trending down. Cardiology report suggests that the patient is okay for discharge from their standpoint and that he will need to follow up with them in the office. Mr. Tellez is clinically stable for discharge. Of note, Mr. Kruse was on oral sulfonylurea before coming to the hospital with an A1c of 8.6. Because of his end-stage renal disease, the sulfonylurea's are usually the least favored for therapy because of the risk of hypoglycemia. We have transitioned him to insulin, and I have discussed the rationale behind it with him. He is okay with that, and he will also further discuss this with his primary care doctor. All the discharge instructions have been discussed with him. He voiced understanding. TIME SPENT FOR DISCHARGE: 38 minutes. cc: MD Meet Whalen MD Reginald D. Gladish, MD Kenneth E. Mashburn, MD MTDD
== END 2019-02-10 14:20 | disposition home or self-care (01) ==
LOC: DIRADM 18:57 → P.ED 18:57 → 2N 18:57 → OBSVTOIN 23:30 → SUATTDRO 23:30
PROVIDERS: ADMIT Internal Medicine; ATTEND Internal Medicine

== ENCOUNTER 2019-06-27 14:49 | Inpatient (IN) ==
[2019-06-27 15:29] LABS: BASO# 0.01 X1000 (0.0-0.2); BASO% 0.1 % (0.0-0.8); HEMATOCRIT 39.9 % (42.0-52.0); HEMOGLOBIN 12.8 g/dL (14.0-18.0); LYMPH# 0.59 X1000 (1.2-3.4); LYMPH% 6.2 % (20.5-51.1); MCH 28.2 PG (27-31); MCHC 32.1 g/dL (33-37); MCV 87.9 FL (81-99); MONO# 0.28 X1000 (0.11-0.59); MPV 10.9 FL (7.4-10.4); NEUT# 8.61 X1000 (1.4-6.5); NEUT% 90.7 % (42.2-75.2); PLT 208 X1000 (130-400); RBC 4.54 XMIL (4.7-6.1); RDW 15.3 % (11.5-14.5); WBC 9.49 X1000 (4.8-10.8)
[2019-06-27 15:53] LABS: ALB/GLOB RATIO 1.3; ALBUMIN 4.7 g/dL (3.5-5.0); CALCIUM 10.5 mg/dL (8.8-10.2); POTASSIUM 5.4 mmol/L (3.5-5.1); TOTAL BILIRUBIN 0.69 mg/dL (0.20-1.00); TOTAL PROTEIN 8.4 g/dL (6.3-8.3)
[2019-06-27 16:04] LABS: CREATININE 7.3 mg/dL (0.7-1.2)
[2019-06-27] MEDS ORDERED: ZOFRAN ODT PO ONE (16:19)
--- NOTE | 2019-06-27 16:25 | PROVIDER DOCUMENTATION ---
HPI-Abdominal Pain/GI Problem - General Chief Complaint: Nausea/Vomiting Stated Complaint: VOMITING Time Seen by Provider: 06/27/19 16:08 Source: patient Allergies/Adverse Reactions: Patient Allergies Allergy/AdvReac Type Severity Reaction Status Date / Time No Known Allergies Allergy Verified 02/07/19 19:46 Home Medications: Home Medication List Medication Instructions Recorded Confirmed Last Taken Type Aspirin [Aspirin EC] 81 mg PO DAILY 06/10/14 02/07/19 07/31/18 08:00 History Glipizide E.r. [Glucotrol Xl] 10 mg PO DAILY 06/10/14 02/07/19 07/31/18 08:00 History Pantoprazole [Protonix] 40 mg PO DAILY@0700 #0 tablet 07/05/16 02/07/19 Unknown Rx Calcium Acetate 3 cap PO TID 07/31/18 02/07/19 07/31/18 21:00 History Folic Acid/Vit B Complex and C 0.8 mg PO DAILY 07/31/18 02/07/19 07/31/18 08:00 History [Dialyvite 800 Tablet] LISINOpril [Prinivil] 10 mg PO DAILY 07/31/18 02/07/19 Unknown History Amlodipine Besylate 5 mg PO DAILY 02/07/19 02/07/19 Unknown History Atorvastatin Calcium 40 mg PO DAILY 02/07/19 02/07/19 Unknown History Furosemide [Lasix] 40 mg PO DAILY 02/08/19 02/08/19 Unknown History Insulin Glargine [Basaglar 10 unit SUBQ QAM #1 insuln.pen 02/10/19 Unknown Rx [Nonformulary]] - History of Present Illness-ABD Nature of Presenting Problems: Patient is a 64yo M who presents with complaints of generalized abdominal pain, nausea, and vomiting which began last night. Reports last episode of emesis was this morning, and he was able to tolerate PO water BLAST FURNACE BLOWER. States last BM was this morning and was normal. Reports SOB w/ exertion. Denies fever, diarrhea, CP, flu-like symptoms. Patient is T/Th/Sat Dialysis patient. Abdominal Pain Onset Location: reports: generalized abdomen Pain Radiation: reports: no radiation Quality of Pain: reports: aching, cramping Severity in ED: reports: moderate Onset/Duration: reports: last night Timing: reports: still present, improving Activities at Onset: reports: none Exposure to sick contacts?: No Modifying Factors: improves with: nothing Associated Symptoms: reports: nausea, shortness of breath (reports SOB w/ exertion). denies: back/neck pain, cough, diarrhea, fever/chills, sinus conge stion/drainage, vomiting Last BM: this morning Dark Stools Present?: reports: none noticed Rectal Bleeding: reports: none # of Diarrhea Episodes: 0 Rectal Pain: reports: none Bruising or Bleeding Gums?: No Similar Symptoms Previously?: No Recently seen or treated by another doctor?: Yes (Dialysis yesterday) Review of Systems - Adult - REVIEW OF SYSTEMS - ADULT Constitutional: denies: chills, fever Eyes: reports: no symptoms reported Ears, Nose, Mouth & Throat: denies: sinus problem, throat pain Cardiovascular: reports: see HPI, edema. denies: palpitations Respiratory: reports: shortness of breath (w/ exertion). denies: cough Gastrointestinal: reports: see HPI, abdominal pain, nausea, vomiting. denies: diarrhea Genitourinary: reports: see HPI. denies: dysuria Musculoskeletal: reports: no symptoms reported Integumentary: reports: no symptoms reported Neurological: reports: no symptoms reported Psychiatric: reports: no symptoms reported Endocrine: reports: no symptoms reported Past History - Adult - PAST MEDICAL HISTORY-ADULT Review of Records: reports: Nursing Assessment Review, Medications Reviewed Major Childhood Illnesses: reports: denies history Cardiovascular: reports: CAD, HTN Respiratory: reports: denies history Gastrointestinal: reports: denies history Obstetrical/Gynecological: reports: denies history Genitourinary: reports: dialysis, kidney disease Musculoskeletal: reports: denies history Neurological: reports: CVA Endocrine/Immune: reports: Diabetes Other Conditions: reports: denies history - PRIOR SURGERIES/PROCEDURES Surgical/Procedure History: reports: CABG, hernia repair, other (total hip replacement) - IMMUNIZATION STATUS Childhood Immunizations: See Nurse Assessment Flu Vaccine: See Nurse Assessment - FAMILY HISTORY Family History: reviewed, not pertinent - SOCIAL HISTORY Smoking: other (former) Physical Exam-General - PHYSICAL EXAM-ADULT Initial Vital Signs Reviewed: Yes - CONSTITUTIONAL General Appearance: alert, mild distress. negative: lethargic, slow to respond, obtunded - EYES Eyes: PERRL/EOMI, pink conjunctivae. negative: EOM palsy, scleral icterus - HEAD, EARS, NOSE, MOUTH & THROAT HENMT: normocephalic/atraumatic, moist mucous membranes. negative: angioedema - NECK Neck: full range of motion, supple, normal inspection - RESPIRATORY Respiratory: chest non-tender, lungs clear, normal breath sounds, no pleuratic chest pain, no respiratory distress, no accessory muscle use. negative: crackles, rales, rhonchi, stridor, wheezing, retractions, splinting - CARDIOVASCULAR Cardiovascular: regular rate, rhythm, no gallop - GASTROINTESTINAL (ABDOMEN) Abdominal Exam: normal bowel sounds, soft, distended, tenderness (diffusely tender to palpation). negative: abnormal bowel sounds, guarding, rigid - MUSCULOSKELETAL Back Exam: normal inspection Extremity: normal range of motion, non-tender, normal inspection, pedal edema (mild bilat.) Peripheral Pulses: dorsalis-pedis (R): 2+, dorsalis-pedis (L): 2+ - SKIN Integumentary: normal color, warm/dry, other (palpable dialysis fistula noted to L upper arm). negative: cyanosis, jaundice, pallor - NEUROLOGIC Neurologic: grossly normal. negative: aphasia - PSYCHIATRIC Psych/Mental Status: normal mood/affect, normal thought content, normal thought process, oriented x 3 Progress - PLAN OF CARE/RESULTS Progress/Plan/Lab Results: Vital Signs - 8 hr 06/27/19 14:50 Temperature 98.4 F Pulse Rate 94 H Respiratory Rate 16 Blood Pressure 148/83 O2 Sat by Pulse Oximetry 100 Laboratory Results - last 24 hr 06/27/19 06/27/19 15:05 15:05 WBC 9.49 RBC 4.54 L Hgb 12.8 L Hct 39.9 L MCV 87.9 MCH 28.2 MCHC 32.1 L RDW Std Deviation 15.3 H Plt Count 208 MPV 10.9 H Immature Gran % (Auto) 0.0 Neut % (Auto) 90.7 H Lymph % (Auto) 6.2 L [place] % (Auto) 3.0 Eos % (Auto) 0.0 Baso % (Auto) 0.1 Immature Gran # (Auto) 0.00 Neut # (Auto) 8.61 H Lymph # (Auto) 0.59 L [place] # (Auto) 0.28 Eos # (Auto) 0.00 Baso # (Auto) 0.01 Sodium 136 Potassium 5.4 H Chloride 90 L Carbon Dioxide 24 L Anion Gap 22 BUN 47 H Creatinine 7.3 H Estimated GFR/1.73 m2 9 BUN/Creatinine Ratio 6 Glucose 263 H Calculated Osmolality 293 Calcium 10.5 H Total Bilirubin 0.69 AST 15 ALT 12 Alkaline Phosphatase 107 Total Protein 8.4 H Albumin 4.7 Globulin 3.7 Albumin/Globulin Ratio 1.3 Amylase 101 Lipase 42 Orders Category Date Time Status Nursing- Obtain EKG ONCE Care 06/27/19 16:05 Active Saline Loc DIRECTED Care 06/27/19 14:56 Active NPO Diet 06/27/19 14:[address] ABDOMEN/PELVIS W/O CONTRAST [CT] Stat Exams 06/27/19 16:16 Ordered AMYLASE [CHEM] Stat Lab 06/27/19 15:05 Completed CBC WITH ELECTRONIC DIFF [HEME] Stat Lab 06/27/19 15:05 Completed COMPREHENSIVE METABOLIC PANEL [CHEM] Stat Lab 06/27/19 15:05 Completed LIPASE [CHEM] Stat Lab 06/27/19 15:05 Completed MAGNESIUM [CHEM] Stat Lab 06/27/19 16:16 Ordered PHOSPHORUS [CHEM] Stat Lab 06/27/19 16:16 Ordered URINALYSIS W/POSS RFLX CULT [URINALYSIS] Stat Lab 06/27/19 14:56 Uncollected Ondansetron Odt [Zofran Odt] Med 06/27/19 16:19 Once 4 mg PO NOW ONE EKG [EKG] Stat Ther 06/27/19 16:05 Ordered 1824: EKG entered in patient's chart outside of "ER Physician Documentation" is inaccurate d/t to EKG mix-up. Correct EKG for Giorgi Leija is charted in "ER Physician Documentation." 1858: Hospitalist paged for admission. Result Diagrams: 06/27/19 15:05 06/27/19 15:05 - REASSESSMENT Reassessment #1 Time Reassessed: 20:57 Reassessment Comment: Pt reports worsening SOB/mild CP Reassessment #2 Status: unchanged (spoke to hospitalist and private tutors and teachers, CKD diabetic dialysis pt with CP SOB N/V with elevated minimaly trending troponins, will admit cp protocal and nephrology consult) - EKG 1 Time of EKG reading by physician:: 17:50 EKG Read and Signed by:: Kellie Renteria EKG Interpretation (*Must complete 3 of following elements*): Abnormal Rate: 66 Rhythm: SR with 2nd degree AV block (Mobitz 1) w/ 2:1 AV conduction w/ PV Cs/fusion Calvin: normal QRS: normal RI Interval: normal ST Wave: non-specific ST changes (consider lateral ischemia) Comments: Prolonged QT 2 Time of EKG reading by physician:: 19:34 EKG Read and Signed by:: Camelia Johnson EKG Interpretation (*Must complete 3 of following elements*): Abnormal Rate: 83 Rhythm: NSR Calvin: normal QRS: normal RI Interval: normal ST Wave: non-specific ST changes Prior EKG Comparison: unchanged from prior (06/27/19 174) - XRAY 1 XRAY: Bilateral XRAY Study: Chest Impression: See EMR Report ([facility] - [address] [place] [address], [address] [place] [id number] [facility] - [address] [place] [address] Department of Imaging Patient: GIORGI LEIJA Date: 06/27/19MR#: [id number] : 1955DM Status: REG ERAcct#: [id number] Age/Sex: 64/MRoom/Bed: Loc: ED Ordering Physician: Kavitha Moser Family Physician: Jim Fowler MD Reason for Procedure: Edema Signed EXAM: CHEST-PORTABLE HISTORY: Edema TECHNIQUE: Single view COMPARISON: 02/07/2019 FINDINGS: The lungs are well expanded. The heart is enlarged. There are sternal wires. The vessels are mildly distended. There are no infiltrates. No effusion identified. IMPRESSION: Cardiomegaly with pulmonary edema Electronically signed by Salvador Flores 06/27/2019 7:20 PM 06/27/191919 Interpreting Physician: Salvador Flores MD Dictated Date/Time: 06/27/191919 cc: Kavitha Moser; Jim Fowler MD) - CT/MRI 1 CT Study: Abdomen, Pelvis Impression: See EMR Report ([facility] - [address] , [address], [place] [address] [facility] - [address] , [place] [address] Department of Imaging Patient: GIORGI LEIJA Date: 06/27/19#: [id number] : 1955DM Status: REG ERAcct#: [id number] Age/Sex: 64/MRoom/Bed: Loc: ED Ordering Physician: Kavitha Moser Family Physician: Jim Fowler MD Reason for Procedure: Non- localized abdominal pain; nausea/vomiting __ _ Signed EXAM: CT ABDOMEN/PELVIS W/O CONTRAST HISTORY: Non-localized abdominal pain; nausea/vomiting TECHNIQUE: CT abdomen and pelvis without contrast COMPARISON: 11/26/2017 FINDINGS: The heart remains enlarged. No calcified gallstones. There is a small amount of fluid about the liver and spleen extending into each paracolic gutter and in the pelvis. No focal hepatic abnormality identified on this noncontrasted exam of there is slight nodularity. No splenomegaly. No inflammation about the pancreas. Normal adrenal glands. The kidneys are atrophic. No hydronephrosis. There is a 3 cm area medial to the left kidney which was not present on the prior exam. This could represent a complex cyst. Neither a solid nor a cystic lesion was present in this location on the prior exam. Severe atherosclerosis. No aortic aneurysm. No bowel obstruction. The urinary bladder is not distended. No abscess. Large umbilical hernia containing fat and a small amount of fluid. IMPRESSION: 1.Likely cirrhosis with a small amount of ascites 2.Severe atherosclerosis 3.Atrophic kidneys with a 3 cm questionable complex left renal cyst 4.Umbilical hernia This exam was performed using automated exposure control, adjustment of mA or kV according to patient size, and/or use of iterative reconstruction technique. Electronically signed by Slavador Flores 06/27/2019 5:29 PM 06/27/19 172 Interpreting Physician: Salvador Flores MD Dictated Date/Time: 06/27/19 172 cc: Kavitha Moser; Jim Fowler MD) - CONSULTS/PCP/HOSPITALIST Notification #1 *Consult/PCP/Hospitalist*: Dr. Mota Hospitalist Time Discussed: 19:28 Reason/Comments: Abdominal pain; n/v; elevated troponin; hyperkalemia Consult Disposition: other (Repeat troponin/EKG. If abnormal, discharge home for dialysis tomorrow) - CHANGE OF SHIFT REPORT (ED Provider) 1 Report Given and Care Transferred to:: Dr. Lindsey Time of Transfer: 21:00 Items Pending: Labs Departure - Departure Date of Disposition Decision: 06/27/19 Time of Disposition Decision: 20:58 DIAGNOSIS: Hyperkalemia, Elevated troponin, Chronic kidney disease requiring chronic dialysis, Hyperphosphatemia, Chest pain due to CAD Abdominal pain Qualifiers: Abdominal location: generalized Qualified Code(s): R10.84 - Generalized abdomi nal pain Nausea and vomiting Qualifiers: Vomiting type: unspecified Vomiting Intractability: non-intractable Qualified Code(s): R11.2 - Nausea with vomiting, unspecified Chest pain Qualifiers: Chest pain type: precordial pain Qualified Code(s): R07.2 - Precordial pain Diabetes type 2, uncontrolled Qualifiers: Glycemic state: with hyperglycemia Qualified Code(s): E11.65 - Type 2 diabetes mellitus with hyperglycemia Fluid overload Qualifiers: Hypervolemia type: unspecified Qualified Code(s): E87.70 - Fluid overload, unspecified Disposition: ADMITTED INPATIENT 09 Certified Medical Emergency: Emergent Condition: Stable Referrals and Follow-Ups: Jim Fowler MD [Primary Care Provider] - Abhishek Villanueva MD [ACTIVE STAFF PHYSICIAN] - - Critical Care Note This patient required my direct & personal management of CC.: No Attestation - Physician/ KHLOE Attestation Patient care was provided by Advanced Practice Provider:: Yes Advanced Practice Provider:: Kavitha Moser Advanced Practice Provider documentation review:: The Mid-level provider documentation, treatment plan and medical decision making was reviewed by the physician who agrees with all treatment and medical decision making by the MLP. The physician spent face to face time with patient:: Yes (César) Advanced Practice Provider documentation review:: Supervising physician onsite and consulted in the evaluation and care of this patient. The physician did have a face to face encounter with the patient.
[2019-06-27 16:59] LABS: MAGNESIUM 1.9 mg/dL (1.5-2.7); PHOSPHORUS 5.5 mg/dL (2.7-4.5)
--- NOTE | 2019-06-27 17:32 | Diag Imaging Result Doc PS360 ---
EXAM: CT ABDOMEN/PELVIS W/O CONTRAST HISTORY: Non-localized abdominal pain; nausea/vomiting TECHNIQUE: CT abdomen and pelvis without contrast COMPARISON: 11/26/2017 FINDINGS: The heart remains enlarged. No calcified gallstones. There is a small amount of fluid about the liver and spleen extending into each paracolic gutter and in the pelvis. No focal hepatic abnormality identified on this noncontrasted exam of there is slight nodularity. No splenomegaly. No inflammation about the pancreas. Normal adrenal glands. The kidneys are atrophic. No hydronephrosis. There is a 3 cm area medial to the left kidney which was not present on the prior exam. This could represent a complex cyst. Neither a solid nor a cystic lesion was present in this location on the prior exam. Severe atherosclerosis. No aortic aneurysm. No bowel obstruction. The urinary bladder is not distended. No abscess. Large umbilical hernia containing fat and a small amount of fluid. IMPRESSION: 1.Likely cirrhosis with a small amount of ascites 2.Severe atherosclerosis 3.Atrophic kidneys with a 3 cm questionable complex left renal cyst 4.Umbilical hernia This exam was performed using automated exposure control, adjustment of mA or kV according to patient size, and/or use of iterative reconstruction technique. Electronically signed by Salvador Flores 06/27/2019 5:29 PM
--- NOTE | 2019-06-27 18:13 | ED EKG INTERP ---
This chart was entered by Cuca Souza Scribe, acting as scribe for Kellie Renteria MD. EKG Interpretation - EKG Time of EKG reading by physician:: 17:35 EKG Read and Signed by:: Kellie Renteria EKG Interpretation (*Must complete 3 of following elements*): Abnormal Rate: 86 Rhythm: sinus with frequent PVCs [place]: normal QRS: RBB (incomplete RBBB), PVC's (frequent), other (low voltage QRS) ST Wave: non-specific ST changes (consider anterior ischemia) Attestation - Physician/ KHLOE Attestation Patient care was provided by Advanced Practice Provider:: Yes Advanced Practice Provider:: Kavitha Moser Advanced Practice Provider documentation review:: The Mid-level provider documentation, treatment plan and medical decision making was reviewed by the physician who agrees with all treatment and medical decision making by the MLP. The physician spent face to face time with patient:: No Advanced Practice Provider documentation review:: Supervising physician onsite and consulted in the evaluation and care of this patient. The physician did not have a face to face encounter with the patient. This chart was documented by the indicated scribe, (Cuca Souza Scribe) and accurately reflects the services I performed and decisions made by me, Kellie Renteria MD, as attested by the provider's signature.
[2019-06-27] MEDS ORDERED: ALBUTEROL NEB INH ONE (18:59)
--- NOTE | 2019-06-27 19:23 | Diag Imaging Result Doc PS360 ---
EXAM: CHEST-PORTABLE HISTORY: Edema TECHNIQUE: Single view COMPARISON: 02/07/2019 FINDINGS: The lungs are well expanded. The heart is enlarged. There are sternal wires. The vessels are mildly distended. There are no infiltrates. No effusion identified. IMPRESSION: Cardiomegaly with pulmonary edema Electronically signed by Salvador Flores 06/27/2019 7:20 PM
--- NOTE | 2019-06-27 19:43 | EKG Report ---
Test Performed on : 06/27/2019 7:33:58 PM Test Reason : REPEAT Blood Pressure : / mmHG Vent. Rate : 083 BPM Atrial Rate : 100 BPM P-R Int : 000 ms QRS Dur : 086 ms QT Int : 420 ms P-R-T Axes : 000 -04 125 degrees QTc Int : [address] & T wave abnormality, consider lateral ischemia Abnormal ECG When compared with ECG of 27-JUN-2019 17:49, (Unconfirmed) Current undetermined rhythm precludes rhythm comparison, needs review Unconfirmed Result
--- NOTE | 2019-06-27 19:44 | EKG Report ---
Test Performed on : 06/27/2019 5:49:52 PM Test Reason : Hyperkalemia Blood Pressure : / mmHG Vent. Rate : 066 BPM Atrial Rate : 089 BPM P-R Int : 000 ms QRS Dur : 090 ms QT Int : 464 ms P-R-T Axes : 000 -23 130 degrees QTc Int : 486 ms Sinus rhythm. with 2nd degree AV block (Mobitz I). with 2:1 AV conduction. with premature ventricular complexes. or fusion complexes ST & T wave abnormality, consider lateral ischemia Prolonged QT Abnormal ECG When compared with ECG of 10-FEB-2019 07:52, fusion complexes are now present premature ventricular complexes. are now present Nonspecific T wave abnormality now evident in Anterior leads Unconfirmed Result
[2019-06-27] MEDS ORDERED: NITROGLYCERIN TOP ONE (21:00)
[2019-06-27] MEDS ORDERED: THORAZINE IM ONE ×2 (21:44→22:00)
[2019-06-27] MEDS ORDERED: LASIX IV ONE (21:45)
[2019-06-27] MEDS ORDERED: TYLENOL PO PRN (22:46)
[2019-06-27] MEDS: HEPARIN SUBQ SCH (22:53)
--- NOTE | 2019-06-27 23:50 | HISTORY AND PHYSICAL ---
PRIMARY CARE PHYSICIAN: Jim Fowler MD. PATCHER WOOD WELDER: Abhishek Villanueva MD. REASON FOR ADMISSION: Chest pain, shortness of breath, nausea, vomiting for 1 day. HISTORY OF PRESENT ILLNESS: Mr. Giorgi Kruse is a 64-year-old black man with past medical history of ischemic cardiomyopathy with EF of 40% to 45% and various heart blocks and bradyarrhythmias, type 2 diabetes, hypertension, hyperlipidemia, prior CVA, end-stage renal disease on hemodialysis Sunday, , Sunday. He comes in today complaining of nausea vomiting for the last 24 hours. No coffee grounds or hematemesis. No melanotic stool or hematochezia. Last bowel movement was earlier today. He reports also having some burning substernal chest pain, nonradiating. It has been constant for most part, but it has resolved since he defecated earlier today. No palpitations, but complains of worsening dyspnea on exertion over the last 24 hours and positive orthopnea. No PND. He has chronic lower extremity edema but it has not worsened. No abdominal distention. No fever, chills. He has a dry cough. No close contacts. No upper respiratory illnesses. No genitourinary problems, polyuria, polydipsia. No focal neurological complaints. REVIEW OF SYSTEMS: Twelve system review was done, positive findings per HPI. The patient also complains of worsening intractable hiccups. ALLERGIES: No known allergies. HOME MEDICATIONS: The patient's home medications have not been officially reconciled. But, he was on Lantus, glipizide, furosemide, atorvastatin, aspirin, amlodipine, Protonix on his last admission. FAMILY HISTORY: No heart disease or kidney disease, but positive type 2 diabetes in first-degree relatives. SOCIAL HISTORY: Does not smoke, drink, or use drugs. , lives with . SURGICAL HISTORY: Umbilical hernia repair, left dialysis shunt placement twice, left hip replacement, left arm rotator cuff repair. PAST MEDICAL HISTORY: See above, including peptic ulcer disease, coronary artery disease, known. LABORATORY WORK: White count 9000, H and H 12 and 39, platelets 208,000, 90% neutrophils. Potassium 5.4, BUN 47, creatinine 0.3. Glucose 263, calcium 10.5, phosphorus 5.5. Initial troponin was 117 followup was 119. CK is negative. Amylase and lipase normal. Chest film shows poor inspiratory effort with increased vascular markings and cardiomegaly. CT scan of the abdomen showed probable cirrhosis with severe atherosclerosis, atrophic kidneys, umbilical hernia. EKG showed probable isolated junctional rhythm of about 80 with poor R-wave progression and nonspecific ST-wave changes. PHYSICAL EXAMINATION: GENERAL: Pleasant, middle-aged man who is not in acute distress. VITAL SIGNS: His heart rate is 107, respiratory rate 18, blood pressure 137/82, temperature is 98.4 degrees, saturation 100% on room air. HEENT: Head is normocephalic, atraumatic. Eyes: ISAIAS, EOMI. He is anicteric. Not pale. ENT exam is grossly normal. No central cyanosis noted. NECK: Supple with noticeable JVD. Positive hepatojugular reflux. No visualized thyromegaly. CHEST: A few basilar wheezes and crepitations, but good air entry both lung reinoso. CARDIOVASCULAR: First and 2nd heart sounds heard. No gallops, murmurs, rubs. Rhythm is intermittently irregular. ABDOMEN: Mild epigastric tenderness. Abdomen is slightly protuberant versus mildly distended. No mass or organomegaly appreciated. Bowel sounds are hypoactive. RECTAL: Deferred at this time. EXTREMITIES: There is trace edema lower extremities. No clubbing or peripheral cyanosis. No tremors. Distal pulse volumes are symmetrical, full and regular. NEUROLOGIC: No focal deficits. SKIN: Intact. No breakdown, lesion, erythema. Skin exam is grossly normal. ASSESSMENT: 1. Intractable nausea and vomiting. Etiology yet to be determined, could be due to dyspepsia from peptic ulcer disease. Will start patient on PPIs to see if symptoms improve. This is based on the fact that this patient has had prior gastric ulcerations in the past. 2. Abnormal troponin levels. This is probably secondary to myocardial leak in the presence of end-stage renal disease. Continue aspirin and statin drugs. Repeat another troponin in the a.m. to confirm and ensure there is no rise in troponin. EKG was nonspecific. The patient is currently chest pain-free. However, we will do repeat enzymes and EKG if patient has a recurrence before tomorrow morning. 3. Pulmonary edema, probably secondary to underlying ischemic cardiomyopathy and end-stage renal disease. We will give patient 1 time dose of Lasix. He will undergo hemodialysis and ultrafiltration tomorrow. 4. Hypertensive heart and kidney disease. 5. Type 2 diabetes. 6. Coronary artery disease/peripheral arterial disease. Continue statins and aspirin. May consider switching aspirin to Plavix due to its broad benefits in patients with peripheral arterial disease over aspirin. 7. Other things to be done: Patient will be started on a low sliding scale. Patient will also have breathing treatments as needed. The patient will also be put on probably high dose Protonix to see if this improves symptoms. Please follow up chest film in 24 hours to see if findings have improved. cc: MD Jim Baez MD Reginald D. Gladish, MD
[2019-06-28] MEDS: HEPARIN SUBQ SCH ×2 (00:26→15:26)
[2019-06-28] MEDS: NITROGLYCERIN TOP SCH ×4 (00:27→18:26)
[2019-06-28] MEDS: DUONEB (A & A) INH SCH ×4 (03:52→21:53)
[2019-06-28] MEDS: HUMALOG SUBQ SCH ×4 (06:32→20:49)
[2019-06-28 07:38] LABS: BASO# 0.01 X1000 (0.0-0.2); BASO% 0.1 % (0.0-0.8); EOS# 0.05 X1000 (0.0-0.7); EOS% 0.5 % (0.0-10.0); HEMATOCRIT 35.4 % (42.0-52.0); HEMOGLOBIN 11.4 g/dL (14.0-18.0); IMM GRAN# 0.02 X1000 (0.0-0.04); IMM GRAN% 0.2 % (0.0-0.5); LYMPH# 1.02 X1000 (1.2-3.4); LYMPH% 9.4 % (20.5-51.1); MCH 28.4 PG (27-31); MCHC 32.2 g/dL (33-37); MCV 88.3 FL (81-99); MONO# 0.29 X1000 (0.11-0.59); MONO% 2.7 % (1.7-9.3); NEUT# 9.42 X1000 (1.4-6.5); NEUT% 87.1 % (42.2-75.2); PLT 166 X1000 (130-400); RBC 4.01 XMIL (4.7-6.1); RDW 15.4 % (11.5-14.5); WBC 10.81 X1000 (4.8-10.8)
[2019-06-28 08:04] LABS: CALCIUM 9.6 mg/dL (8.8-10.2); CREATININE 8.4 mg/dL (0.7-1.2); POTASSIUM 4.6 mmol/L (3.5-5.1)
[2019-06-28 08:28] LABS: ANISOCYTOSIS 2+; BURR CELLS 1+; EOS 2 % (1-10); HYPOCHROM 1+; LYMPHS 9 % (21-51); MICROCYTOSIS 2+; MONO 3 % (1-9); SEGS 86 % (42-75)
[2019-06-28] MEDS ORDERED: PROTONIX PO SCH (09:00)
[2019-06-28] MEDS ORDERED: NS 2,000 ML MISC PRN (10:44)
--- NOTE | 2019-06-28 14:48 | Diag Imaging Result Doc PS360 ---
EXAM: CHEST-2 VIEWS HISTORY: Pulm edema TECHNIQUE: Three views COMPARISON: 06/27/2019 FINDINGS: The lungs are well expanded. The heart is enlarged. There are sternal wires. No pleural effusions. Decreased pulmonary edema. No consolidation. IMPRESSION: Interval improvement Electronically signed by Salvador Flores 06/28/2019 2:46 PM
--- NOTE | 2019-06-28 14:52 | NEPHROLOGY CONSULTATION ---
DATE: 06/28/2019 CONSULTING PHYSICIAN: Omar Miller MD. REASON FOR CONSULTATION: Pulmonary edema. HISTORY OF PRESENT ILLNESS: Mr. Kruse is a 64-year-old -[place] man, who is well known to us. He has diabetes, hypertension, CKD 5D secondary to his diabetes. He also has hyperlipidemia, hypertension, coronary artery disease. He was in his usual state of health until evening. He had his routine dialysis on without any complications, that evening he began having nausea and vomiting that was persistent and not associated with diarrhea, not associated with hematemesis, or other symptoms. Sundayday, he began having some discomfort in his chest that prompted him to come to the emergency room. He is still on room air, and he has not been short of breath that he can relate. His evaluation in the emergency room found blood pressure 148/83, heart rate 94, respirations 16, and he was afebrile. Room air O2 saturation 100%. His initial laboratory evaluation found troponin of 117 that derrek to 665 this morning. PAST MEDICAL HISTORY: As above. HOME MEDICATIONS: Include glipizide, aspirin, pantoprazole, multivitamin, calcium acetate, lisinopril, atorvastatin, amlodipine, furosemide, insulin. ALLERGIES: None. SOCIAL HISTORY: No alcohol or tobacco. . FAMILY HISTORY/REVIEW OF SYSTEMS: Noncontributory. PHYSICAL EXAMINATION: Vital Signs: Blood pressure 129/53, heart rate 86, respirations 15, afebrile. General: Healthy-appearing man but somewhat subdued, no acute distress. Skin: Warm and dry. Conjunctivae are pink. Pupils are equal. Oropharynx is clear. Normal tongue. Normal teeth. Neck: Supple. Trachea is midline. No jugular venous distention. Heart: PMI nondisplaced. Regular rate and rhythm with soft systolic murmur. No gallops or rubs. Lungs: Have equal excursion, equal breath sounds. No crackles or wheezes. Abdomen: Soft, nontender, nondistended. Bowel sounds are present. No organomegaly or masses. Extremities: No edema, clubbing, or cyanosis. Neurologic Exam: Nonfocal. IMPRESSION: 1. Chronic kidney disease 5D. He is currently undergoing his routine hemodialysis treatment. We are challenging his dry weight because of his chest x-ray findings. 2. Electrolytes/acid- base/anemia./hypertension all within target. 3. Abnormal troponin. Will ask Cardiology to evaluate. cc: Abhishek Villanueva MD
--- NOTE | 2019-06-28 17:03 | PROGRESS NOTE ---
DATE: 06/28/2019 SUBJECTIVE: This morning Mr. Kruse refers to be doing well Mr. Kruse got admitted yesterday because he said he has been having some nauseation since 3 days ago, got worse yesterday so he came to the emergency room. He denies any chest pain. OBJECTIVE: Vitals: Blood pressure is 129/53, pulse of 83, respiration is 16, temperature 97.9 degrees. General: Mr. Tellez 64-year-old gentleman he is in bed no distress. Mucosa is pink and moist. Anicteric. Acyanotic. Neck: Supple. Chest: Clear to auscultation. No crepitations, no rhonchi. Cardiovascular: Regular rate and rhythm. Abdomen: Soft, nontender. Bowel sounds present. Extremities: No pedal edema. MYSTERY SHOPPER: Patient is awake, alert, oriented, no focal deficit. LABORATORY DATA: Has been reviewed. Patient troponin had gone up to 665. EKG shows sinus rhythm with 1st heart degree. ASSESSMENT: 1. Intractable nausea on admission of unclear etiology, patient seems to have improved. Unsure if it was related to uremic gastritis or peptic ulcer disease or is a sign of an extraintestinal pathology. Any case Mr. Kruse refers to be doing a lot better. 2. Elevated troponins in a patient with a history of coronary artery disease. This is be concerning for a non-ST segment elevation myocardial infarction, cardiology has been consulted. 3. Pulmonary edema likely combination of congestive heart failure and end-stage renal disease. Patient underwent dialysis this morning, he refers to be feeling a lot better. 4. Hypertension controlled. 1. History of coronary artery disease status post coronary artery bypass graft. 2. History of cardiac arrhythmia, patient has 2nd-degree atrioventricular block type 1. EKGs on this admission seems to suggest type 1 atrioventricular block, patient is however currently asymptomatic. 3. Diabetes mellitus type 2. cc: Vineet Jefferson MD
--- NOTE | 2019-06-28 21:10 | CONSULTATION ---
DATE OF CONSULTATION: 06/28/2019 IMPRESSION: 1. Episodes of nausea and vomiting with some subsequent chest discomfort after vomiting. Chest symptoms atypical but cannot exclude angina equivalent in the form of nausea and vomiting. 2. Abnormal troponin to approximately 600 this morning using high sensitivity assay. 3. Atherosclerotic coronary disease. Patient is status post coronary bypass grafting in 2012. He had reevaluation with coronary angiography approximately 11 months ago which demonstrated bypass grafts to be patent. 4. End-stage renal disease requiring chronic hemodialysis 3 times a week. 5. Longstanding type 2 diabetes mellitus. 6. Hypertension. 7. Hyperlipidemia. RECOMMENDATIONS: 1. Repeat troponin and check CPK with isoenzymes. 2. Consider reevaluation with Lexiscan myocardial perfusion study with low threshold to pursue repeat cardiac catheterization. HISTORY: This 64-year-old -Maltese male with past history of previous coronary bypass surgery in 2012, type 2 diabetes mellitus, end-stage renal disease requiring chronic hemodialysis, hypertension, and hyperlipidemia was admitted for further evaluation of recurrent nausea and vomiting. Two nights ago he had onset of nausea and vomiting. He had routine dialysis . That evening he started having nausea and vomiting. After vomiting he relates some subsequent chest discomfort atypical for myocardial ischemia. There has been no shortness of breath. His chest discomfort was rather persistent on Sunday prompting him to come to the emergency room. Troponin on presentation was 117 and derrek to 665 using high sensitivity assay. For this reason, Cardiology is consulted. It is noteworthy that he had a admission this past fall for similar symptoms and had troponin elevate to 0.25 using the older assay. He had reevaluation with cardiac catheterization approximately 11 months ago by his regular marketing operations coordinator, Dr. Meet Morales, which demonstrated his bypass grafts to be patent. Left ventricular ejection fraction has been low- normal to borderline reduced. He had a MUGA scan performed 02/07/2019 which demonstrated a left ejection fraction of 49% without wall motion abnormality. PAST MEDICAL HISTORY: 1. Atherosclerotic coronary disease with previous coronary bypass grafting 2012. 2. End-stage renal disease requiring chronic hemodialysis. 3. Type 2 diabetes mellitus, longstanding. 4. Hypertension. 5. Hyperlipidemia. ALLERGIES: No known drug allergies. MEDICATIONS PRIOR TO ADMISSION: As listed. SOCIAL HISTORY: He is retired. He is a nonsmoker and does not use alcohol. FAMILY HISTORY: Positive for type 2 diabetes mellitus. REVIEW OF SYSTEMS: Pulmonary: Noncontributory beyond history of present illness. Gastrointestinal: Noncontributory beyond history of present illness. Constitutional: Noncontributory beyond history of present illness. PHYSICAL EXAMINATION: General: This is a pleasant, older middle-aged -Maltese male in no distress on room air. Vital signs: Blood pressure 120/58, heart rate 89, oxygen saturation 100% on room air. HEENT: Extraocular movements intact. Mucous membranes moist. Neck: Supple without jugular venous distention. There are no carotid bruits. Chest: Clear to auscultation bilaterally. Cardiac Exam: Reveals a regular rate and rhythm without appreciable murmur or gallop. Abdomen: Soft. Bowel sounds are normal. Extremities: Without edema. Neurologic: Reveals him to be alert and fully oriented. Speech is fluent. He moves all 4 extremities equally well. Skin: Warm, dry. Psychiatric: Reveals mood to be appropriate. DATA: A 12 lead EKG demonstrates sinus rhythm with frequent premature supraventricular complexes, first degree AV block and nonspecific ST and T-wave abnormality. LABORATORY DATA: Includes a white blood cell count 10.8, hematocrit 35.4, hemoglobin 11.4, platelet count 166,000. Sodium 136, potassium 4.6, chloride 91, carbon dioxide 21, BUN 58, creatinine 8.4, glucose 207. Initial troponin T high sensitivity 117 with followup troponin T high sensitivity 119 and 3rd troponin T high sensitivity 665. cc: Richmond Moon MD
[2019-06-28 21:20] LABS: CK INDEX 14.8 (0.0-2.5); CK-MB 60.5 ng/mL (0.0-5.0)
[2019-06-28 22:06] LABS: CK INDEX 11.9 (0.0-2.5)
[2019-06-28] MEDS: LOPRESSOR PO SCH (22:31)
[2019-06-28] MEDS: HEPARIN 25,000 UNIT in NS 250 ML IV SCH (23:57)
[2019-06-29] MEDS: DUONEB (A & A) INH SCH ×4 (03:12→22:19)
[2019-06-29] MEDS: HUMALOG SUBQ SCH ×4 (06:44→20:51)
[2019-06-29] MEDS: PRINIVIL PO SCH (09:17)
[2019-06-29] MEDS: ASPIRIN EC PO SCH (09:17)
[2019-06-29] MEDS: LOPRESSOR PO SCH ×2 (09:17→20:50)
[2019-06-29] MEDS: NEPHRO-VITE PO SCH (09:17)
[2019-06-29] MEDS: ZOFRAN IV PRN (11:31)
--- NOTE | 2019-06-29 15:51 | PROGRESS NOTE ---
DATE: 06/29/2019 INTERVAL HISTORY: I have seen and examined Mr. Kruse today. Mr. Kruse refers to be doing well. Denies any chest pain, no shortness of breath. He did have a little issue with his PTT being drawn which was hurting a little bit. He was also wanting to know why he is on a blood thinner. OBJECTIVE: Vital signs: Blood pressure is 120/64, pulse of 73, respirations 17, temperature 97.7 degrees. General: Mr. Kruse is a 64-year-old gentleman who was sitting up in a chair, no distress. HEENT: Mucosa is pink and moist. Anicteric. Acyanotic. Neck: Supple. Chest: Clear to auscultation there was no crepitations no rhonchi. Cardiovascular: Regular rate and rhythm. No murmurs, no rubs, no gallops. GI: Abdomen soft, nontender. Bowel sounds present. Extremities: The patient has AV fistula on the left arm. There is a non nonfunctional AV fistula on the left forearm as well. TRACK BROOM OPERATOR: Patient is awake, alert, and oriented. Musculoskeletal: There is an old sternotomy scar. LABORATORY DATA: Has been reviewed. Troponin has gone up to 1179. He has been started on heparin drip today. ASSESSMENT: 1. Intractable nausea on presentation of unclear etiology, presumably related to the ongoing ACS. 2. Elevated troponin in a patient with coronary artery disease, concerning for non STEMI. Patient has been started on medications including IV heparin. 3. Pulmonary edema secondary to combination of congestive heart failure and end-stage renal disease. 4. Hypertension controlled. 5. History of coronary artery disease status post coronary artery bypass graft. 6. History of cardiac arrhythmia including second-degree arteriovenous block and first-degree arteriovenous block, currently asymptomatic. PLAN: So, in general, I think Mr. Kruse is doing well. He continues to be nauseated. His troponin has significantly gone up. He is currently on IV heparin pending cardiology to evaluate him to decide if they will do a left heart catheterization while he is here or they will make arrangements for him to have it done in [place]. cc: Vineet Jefferson MD
--- NOTE | 2019-06-29 16:45 | PROGRESS NOTE ---
DATE: 06/29/2019 SUBJECTIVE: Patient continues with some transient brief nausea but no further vomiting. He denied any further chest discomfort. OBJECTIVE: Blood pressure 100/60, heart rate 71, oxygen saturation 100%. There is no significant jugular venous distention. Chest is clear to auscultation bilaterally. Cardiac examination reveals a regular rate and rhythm without appreciable murmur or gallop. There is no evidence of peripheral edema. Laboratory Data: Includes a followup troponin last night at 1179 using high sensitivity assay. CPK is 320 with CPK-MB of 38 and CPK-MB index of 11.9. IMPRESSION: 1. Acute coronary syndrome with small non-ST elevation myocardial infarction suggested. His nausea and vomiting may potentially be an angina equivalent. 2. Atherosclerotic coronary disease. Patient is status post previous coronary artery bypass surgery in 2012 with left internal mammary artery graft to left anterior descending coronary artery, saphenous vein graft to first diagonal, saphenous vein graft to third obtuse marginal, and a saphenous vein graft to the distal right coronary artery. Last cardiac catheterization study performed 08/01/2018 reported patent left internal mammary artery graft to the left anterior descending coronary artery, patent saphenous vein graft to distal right coronary artery, and patent saphenous vein graft to obtuse marginal. Left ventricular ejection fraction by MUGA scan in February of 2019 was 49%. 3. End-stage renal disease, requiring chronic hemodialysis. 4. Longstanding type 2 diabetes mellitus. 5. Hypertension. 6. Hyperlipidemia. RECOMMENDATIONS: 1. Continue intravenous heparin. 2. Metoprolol initiated. 3. Favor re-evaluation with cardiac catheterization and selective coronary angiography. The rationale for pursuing cardiac catheterization/coronary angiography was discussed with the patient, along with potential hazards of a cardiac catheterization procedure. Patient also advised that should he need percutaneous intervention, he would need to be transferred to have a coronary angioplasty/stent procedure as these are not done at [facility]. He elected to go forward with a cardiac catheterization procedure here at [facility] tomorrow morning. Heparin to be discontinued several hours prior to procedure. cc: Richmond Moon MD
[2019-06-29] MEDS: HEPARIN 25,000 UNIT in NS 250 ML IV SCH (18:29)
[2019-06-29] MEDS: LIPITOR PO SCH (20:50)
[2019-06-29] MEDS ORDERED: HEPARIN 25,000 UNIT in NS 250 ML IV SCH (23:24)
[2019-06-30] MEDS: DUONEB (A & A) INH SCH ×4 (03:43→21:33)
[2019-06-30] MEDS ORDERED: NS 1,000 ML IV SCH ×3 (04:30→11:15)
[2019-06-30 05:10] LABS: HEMATOCRIT 37.6 % (42.0-52.0); HEMOGLOBIN 12.6 g/dL (14.0-18.0); MCH 29.4 PG (27-31); MCHC 33.5 g/dL (33-37); MCV 87.9 FL (81-99); MPV 10.7 FL (7.4-10.4); RBC 4.28 XMIL (4.7-6.1); RDW 15.6 % (11.5-14.5); WBC 10.51 X1000 (4.8-10.8)
[2019-06-30 05:31] LABS: ALBUMIN 3.9 g/dL (3.5-5.0); CALCIUM 9.4 mg/dL (8.8-10.2); CREATININE 8.3 mg/dL (0.7-1.2); PHOSPHORUS 6.2 mg/dL (2.7-4.5); POTASSIUM 5.4 mmol/L (3.5-5.1)
[2019-06-30] MEDS: HUMALOG SUBQ SCH ×4 (06:22→20:44)
[2019-06-30] MEDS ORDERED: D50W SYRINGE IV PRN (06:28)
[2019-06-30] MEDS ORDERED: D50W SYRINGE IV ONE (06:49)
[2019-06-30] MEDS: PRINIVIL PO SCH (08:20)
[2019-06-30] MEDS: ASPIRIN EC PO SCH (08:20)
[2019-06-30] MEDS: LOPRESSOR PO SCH ×2 (08:20→20:55)
[2019-06-30] MEDS: NEPHRO-VITE PO SCH (08:20)
[2019-06-30 08:21] LABS: INR 1.57; PROTIME 19.1 Seconds (11.0-16.0)
[2019-06-30] MEDS ORDERED: HEPARIN 1000 UNITS/NS 2,000 UNIT/1,000 ML IV.SOLN ONE (08:22)
[2019-06-30] MEDS ORDERED: VERSED ONE (09:15)
[2019-06-30] MEDS ORDERED: DEMEROL ONE (09:15)
[2019-06-30] MEDS ORDERED: NITROGLYCERIN ONE (09:21)
--- NOTE | 2019-06-30 11:34 | EKG Report ---
Test Performed on : 06/30/2019 11:22:51 AM Test Reason : S/P HEART CATH Blood Pressure : / mmHG Vent. Rate : 065 BPM Atrial Rate : 065 BPM P-R Int : 408 ms QRS Dur : 090 ms QT Int : 462 ms P-R-T Axes : 046 027 145 degrees QTc Int : 480 ms Sinus rhythm. with 1st degree AV block. Cannot rule out Inferior infarct , age undetermined Abnormal ECG When compared with ECG of 27-JUN-2019 19:33, (Unconfirmed) Nonspecific T wave abnormality no longer evident in Anterior leads Confirmed by Umair Kruse MD ([id number]) on 07/02/2019 3:24:20 PM
--- NOTE | 2019-06-30 12:15 | CARDIAC CATH REPORT ---
DATE: 06/30/2019 PROCEDURES PERFORMED: 1. Left heart catheterization. 2. Selective bilateral coronary arteriography. 3. Left ventriculography. 4. Opacification of left subclavian artery. 5. Opacification of vein graft to obtuse marginal system. 6. Opacification of vein graft to right coronary artery. 7. Opacification of right femoral artery. HISTORY OF PRESENT ILLNESS: This is a 64-year-old male with end stage renal disease, presenting with chest pain. Cardiac enzymes came back positive, consistent with a non-ST myocardial infarction. The patient was placed on heparin. Dr. Moon saw the patient in consultation and recommended a heart catheterization. Benefits, risks and complications were discussed. He understood and requested to proceed. 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 The right groin was prepped and draped in a sterile fashion and anesthetized with lidocaine 1%. Initially in order to facilitate the isolation of the femoral artery, we placed a sheath in the right femoral vein. Then the right femoral artery was selectively cannulated with a 6-Scottish introducer sheath. Then we advanced a 6-Scottish right Anson catheter and with this catheter, the central aortic pressure was measured. We then negotiated the aortic valve. Left ventricular pressure was measured. Left ventriculogram was performed in the 60 degree GAMBIAN projection and 30 degree BOBO projection by hand injection. Then we opacified the right coronary artery. Then using the same catheter, the vein graft to the right coronary artery was selectively opacified in 3 projections. Then this catheter was removed and replaced by mammary graft catheter. With this catheter, the subclavian artery was opacified one time. The mammary artery could not be selectively engaged due to distortion of the subclavian artery and rotation of the ostium of the mammary. Then with the mammary artery catheter, the ostium of the vein graft to the marginal system was opacified. Then the catheter was removed. Then we advanced a 6-Scottish left Anson 4 catheter, and we opacified the left main coronary artery in several projections. Thereafter advanced a multipurpose A2 catheter and with this catheter, I attempted to opacify again the vein graft to the OM system; however, that was not possible. The first injection was good enough to tell that the graft was open. Then with that catheter, we opacified the left subclavian artery one more time to have a better assessment of the mammary graft. Thereafter, all the catheters were removed and the sheath was flushed. The right femoral artery was opacified. The artery unfortunately was not good enough to deploy an Angio-Seal device because of diffuse calcification and atherosclerotic changes. Hemostasis was accomplished by hand compression. The arterial sheath was removed first, and then the venous sheath was removed next with good hemostasis. The patient tolerated the procedure well without complication. SUMMARY OF HEMODYNAMIC FINDINGS: Central aortic pressure is 87/46, mean is 62. Left ventricular pressure is 87/15. Post LV gram 87/46. This indicates low blood pressure systemic with borderline elevated LVEDP. The patient received Versed 1 mg and Demerol 25 mg at the beginning of the case. SUMMARY OF ANGIOGRAPHIC FINDINGS: 1. Right coronary artery. The right coronary artery is dominant and is totally occluded proximally after giving rise to the conus branch and the sinus nolan branch. 2. Left main coronary artery. The left main coronary artery shows heavy calcification and divides into LAD and circumflex system. 3. Left anterior descending coronary artery. The vessel now appears to be completely occluded proximally following a very proximal 95% to 99% stenosis. On previous cardiac catheterizations, the LAD and 1 diagonal branch had been patent. At this time, this vessel is completely occluded. 4. Circumflex. The circumflex gives rise to an OM branch and the terminal circumflex which appears to be totally occluded. 5. Mammary graft. Opacification of the subclavian artery showed that the left mammary artery graft is patent and is anastomosed to the LAD, and there appears to be good perfusion of the distal vessel. No significant lesions are noted along the LAD. 6. Saphenous vein graft to right coronary artery. The saphenous vein graft to right coronary artery shows proximal stenosis about 30%. It touches down into the proximal portion of the posterior descending branch of the right coronary artery with good perfusion of the distal vessel and retrograde perfusion to the more proximal portion of the right coronary artery. There are also extensive collaterals to the septal branches of the LAD and to the circumflex. 7. Saphenous vein graft to the obtuse marginal system. The saphenous vein graft to the OM circumflex branch is patent. This vessel shows an ostial 30% to 40% stenosis. It touches down into a small posterolateral branch of the circumflex with good antegrade flow and some retrograde flow. LEFT VENTRICULOGRAM: Left ventriculogram in the 30 degree BOBO projection and 60 degree GAMBIAN projection shows enlargement of the left ventricular chamber with significant hypokinesis of the entire ventricle. Ejection fraction is 30%. No mitral regurgitation is noted. OPACIFICATION OF RIGHT FEMORAL ARTERY: This vessel is calcified. Extensive atherosclerotic changes. Occlusion of one side branch appears to be part of the profunda. Angio-Seal device was not deployed. SUMMARY: 1. Severe 3-vessel coronary artery disease, total right coronary artery occlusion, total circumflex occlusion and total LAD occlusion (the occlusion of LAD is new compared to prior cath 2017). 2. Patent mammary graft to LAD. 3. Patent OM graft. 4. Patent right coronary artery vein graft. 5. Enlarged left ventricle with significant hypokinesis. Ejection fraction 30%. 6. No mitral regurgitation. No aortic stenosis. 7. Atherosclerotic changes of the femoral artery. RECOMMENDATIONS: The patient will be treated medically. His current WV seems to be directly related to occlusion of the LAD and the diagonal branch that had been patent on previous studies. At this time, there is no point in pursuing revascularization. There are extensive collaterals coming from the distal right coronary artery supplying the LAD territory. The patient will be treated medically. Thank you for the opportunity to participate in his evaluation. cc: Ye Hutton MD [facility]
--- NOTE | 2019-06-30 14:32 | PROGRESS NOTE ---
DATE: 06/30/2019 SUBJECTIVE: The patient continues without further nausea or vomiting. There has been no chest pain. He had a cardiac catheterization performed today which demonstrated patent left internal mammary artery graft to left anterior descending coronary, patent saphenous vein graft to obtuse marginal, and patent saphenous vein graft to the distal right coronary with occluded saphenous vein graft to the diagonal. He had progression of douglas vessel coronary atherosclerosis with occlusion of proximal douglas left anterior descending coronary, progression of diffuse atherosclerosis in obtuse marginal. Left ventricular ejection fraction reported at 30%. Medical management recommended. OBJECTIVE: Vital signs: Blood pressure 101/68, heart rate 68, oxygen saturation 97 to 100% on nasal cannula oxygen. Neck: There is no significant jugular venous distention. Chest: Clear to auscultation. Cardiac Exam: Reveals a regular rate and rhythm without appreciable murmur or gallop. Extremities: Without edema. LABORATORY DATA: From today includes a white blood cell count 10.5, hematocrit 37.6, platelet count 188,000. Sodium 138, potassium 5.4, chloride 95, carbon dioxide 23, BUN 51, creatinine 8.3, glucose 85. IMPRESSIONS: 1. Recent acute coronary syndrome with small non-ST elevation myocardial infarction suggested. 2. Atherosclerotic coronary disease with history of previous coronary bypass surgery. Coronary angiography today demonstrates progression of douglas vessel coronary atherosclerosis most notably in proximal left anterior descending coronary which is now occluded with patent left internal mammary artery graft to distal left anterior descending coronary. There has also been progression of diffuse atherosclerosis in obtuse marginal. Left ventricular ejection fraction 30%. Continue medical management recommended. 3. End-stage renal disease requiring chronic hemodialysis. 4. Longstanding type 2 diabetes mellitus. 5. Hypertension. 6. Hyperlipidemia. RECOMMENDATIONS: 1. Leave off intravenous heparin. 2. Continue metoprolol as tolerated. 3. Monitor overnight. Patient scheduled for dialysis tomorrow. It would be reasonable for him to go home following dialysis tomorrow if he continues clinically stable. cc: Richmond Moon MD
--- NOTE | 2019-06-30 16:31 | PROGRESS NOTE ---
DATE: 06/30/2019 SUBJECTIVE: I have seen and examined Mr. Kruse today Mr. Kruse refers to be doing well denies any new complaints. At the time of the encounter he was awaiting to go for left heart catheterization. OBJECTIVE: Vitals: Blood pressure is 106/64, pulse of 60, respiration is 19, temperature 98.5 degrees. General: Mr. Kruse 64-year-old gentleman he was in bed, no distress. Mucosa is pink and moist. Anicteric. Acyanotic. Neck: Supple. Chest: Clear to auscultation. There was no crepitations, no rhonchi. Cardiovascular: Regular rate and rhythm. No murmurs, no rubs, no gallops. Abdomen: Soft, nontender. Bowel sounds present. Extremities: No pedal edema. There is an AV fistula on the left arm. 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 Musculoskeletal: There is an old sternotomy scar. LABORATORY DATA: WBC is 10.51, hemoglobin is 12.6, platelet count of 188,000. Chemistry is also reviewed consistent with renal failure. MEDICATIONS: Have all been reviewed, no changes. At the time of the dictation the result of the left heart catheterization is known and patient has 3-vessel disease with total right coronary occlusion, total circ occlusion and total LAD occlusion, the grafts seems to be patent. Patient has ejection fraction of 30%. Recommendation is to continue aggressive medical management. ASSESSMENT: 1. Intractable nausea on admission presumably related to acute coronary syndrome. 2. Non-ST segment elevation myocardial infarction. Patient is status post left heart catheterization, please find the result in the chart. Briefly severe 3-vessel disease, Cardiology recommend aggressive medical therapy. 3. Pulmonary edema secondary to congestive heart failure, ejection fraction of 30%. 4. History of coronary artery disease status post coronary artery bypass graft in the past. 5. Endstage renal disease on hemodialysis on Tuesdays, and Saturdays. Nephrology is on board. So in general I think Mr. Tellez is doing fairly okay, presented mainly because of a lot of nauseation which has improved, during the hospital course he was found to have elevated troponins. Because of his risk factors a left heart catheterization was offered. This was done today. He has severe 3-vessel disease and he has been advised aggressive pharmacological therapy. Will follow with further recommendations from Cardiology. I think Mr. Tellez can potentially be discharged tomorrow. cc: Vineet Jefferson MD
[2019-06-30] MEDS: LIPITOR PO SCH (20:55)
[2019-07-01] MEDS: DUONEB (A & A) INH SCH ×4 (03:12→21:15)
[2019-07-01 06:31] LABS: CHOLESTEROL 118 mg/dL (0-200); HDL 47 mg/dL (35-55); LDL 50 mg/dL; TRIGLYCERIDES 105 mg/dL (39-160); VLDL 21 mg/dL
[2019-07-01] MEDS: HUMALOG SUBQ SCH ×4 (06:31→21:18)
[2019-07-01 06:41] LABS: CALCIUM 9.1 mg/dL (8.8-10.2); POTASSIUM 5.1 mmol/L (3.5-5.1)
[2019-07-01 07:12] LABS: CREATININE 10.3 mg/dL (0.7-1.2)
[2019-07-01] MEDS ORDERED: NS 2,000 ML MISC PRN (08:04)
[2019-07-01] MEDS: NEPHRO-VITE PO SCH (08:50)
[2019-07-01] MEDS: LOPRESSOR PO SCH ×2 (08:50→20:27)
[2019-07-01] MEDS: PRINIVIL PO SCH (08:51)
[2019-07-01] MEDS: ASPIRIN EC PO SCH (08:51)
[2019-07-01] MEDS: ZOFRAN IV PRN (11:43)
--- NOTE | 2019-07-01 12:26 | NEPHROLOGY PROGRESS NOTE ---
DATE: 07/01/2019 SUBJECTIVE: He had an episode of chest tightness during dialysis and now he is nauseated. Unrelieved by ondansetron. No shortness of breath. OBJECTIVE: Vital Signs: Blood pressure 124/68, heart rate 74, respirations 14, afebrile. General: Uncomfortable, but in no acute distress. Skin: Warm and dry. HEENT: Conjunctivae are pink. Neck: Neck veins are distended. Trachea is midline. Heart: Regular. Lungs: Equal. No crackles. Abdomen: Soft, nontender. Bowel sounds present. Extremities: No edema, clubbing or cyanosis. IMPRESSION AND PLAN: 1. Chronic kidney disease 5d. I will interrupt his dialysis at this time. He has 1 hour 16 minutes remaining. We will reevaluate and repeat treatment tomorrow if needed after his symptoms are abated. 2. Nausea and chest discomfort. Likely anginal. I discussed the case directly with Dr. Salgado. We will add Ranexa 500 mg once a day. I will ask gastrointestinal to assist with his management. cc: Abhishek Villanueva MD
--- NOTE | 2019-07-01 12:53 | Diag Imaging Result Doc PS360 ---
EXAM: CHEST-PORTABLE INDICATION: reassess pulmonary edema TECHNIQUE: One view COMPARISON: 06/28/2019 FINDINGS: There is evidence of mild pulmonary venous congestion that is essentially stable. The interstitial edema has largely resolved. No new consolidation is identified. There is stable cardiomegaly. IMPRESSION: Essential resolution of pulmonary edema. Mild pulmonary venous congestion is approximately stable. Electronically signed by Conner Law 07/01/2019 12:51 PM
[2019-07-01] MEDS: RANEXA PO SCH (13:17)
--- NOTE | 2019-07-01 14:31 | PROGRESS NOTE ---
DATE: 07/01/2019 SUBJECTIVE: Patient had some recurrent low-grade chest discomfort and nausea while on dialysis. There has been no shortness of breath. He continues on room air. There is no shortness of breath. OBJECTIVE: Blood pressure 130/65, heart rate 74. HEENT: There is no significant jugular venous distention. Chest: Clear to auscultation bilaterally. Cardiac: Reveals a regular rate and rhythm without appreciable murmur or gallop. There is no evidence of peripheral edema. LABORATORY DATA: Includes a sodium 131, potassium 5.1, chloride 89, carbon dioxide 20, BUN 65, creatinine 10.3, glucose 71. Triglycerides 105, total cholesterol 118, LDL cholesterol 50, VLDL cholesterol 21, HDL cholesterol 47. IMPRESSION: 1. Recent acute coronary syndrome with small non-ST elevation myocardial infarction. Cardiac catheterization results dictated continued medical management and show 3/4 bypass grafts patent and severe multivessel coronary atherosclerosis. The patient has had some recurrent nausea and chest discomfort. 2. Ischemic cardiomyopathy. 3. End-stage renal disease requiring chronic hemodialysis. 4. Longstanding type 2 diabetes mellitus. 5. Hypertension. 6. Hyperlipidemia. RECOMMENDATIONS: 1. Continue metoprolol as tolerated. 2. Given recurrent chest symptoms, add Ranexa. 3. Lipid profile from this morning suggests adequate LDL cholesterol lowering on current therapy. cc: Richmond Moon MD
--- NOTE | 2019-07-01 17:32 | PROGRESS NOTE ---
DATE: 07/01/2019 PRIMARY CARE PHYSICIAN: Dr. Jim Fowler. HISTORY OF PRESENT ILLNESS: Mr. Kruse was admitted to the hospital on 06/27/2019. He presented with chest pain, shortness of breath, nausea, vomiting for a day, 64-year-old black male with past medical history ischemic cardiomyopathy, ejection fraction 40-45% and had various heart blocks and bradyarrhythmias. He has diabetes mellitus type 2, hypertension, hyperlipidemia, prior CVA, end-stage renal disease on hemodialysis Tuesdays, , and Saturdays. He came in complaining of nausea and vomiting for 24 hours. No coffee-grounds or hematemesis. No melanotic stools or hematochezia. Last bowel movement was earlier in the day of admission. Reports he is having some burning substernal chest pain, nonradiating, has been constant for most part, but it had resolved since he had a defecation earlier in the day. No palpitations. No complaints of worsening dyspnea on exertion over the last 24 hours. No paroxysmal nocturnal dyspnea. He has chronic lower extremity edema, but it has not worsened. No abdominal distention. No fever or chills. He has had dry cough. No close contacts that were infected. No upper respiratory tract infection. No genitourinary problems, polyuria, polydipsia. No focal neurologic complaints. Admission diagnosis intractable nausea and vomiting, etiology undetermined and he did have abnormal elevation of troponin levels and some pulmonary edema, pulmonary venous hypertension secondary to underlying ischemic cardiomyopathy and end-stage renal disease, history of hypertension, diabetes, has a history of coronary artery disease and peripheral vascular disease, so continued statins and aspirin. He showed clinical improvement. Nephrology was asked to see, Dr. Villanueva feels he has chronic kidney disease stage 5D and he is already on hemodialysis and going to challenge his dry weight because of his evidence of pulmonary venous hypertension. His electrolytes and acid-base status and anemia were all within target. He did have an abnormal elevation in troponin. Dr. Moon evaluated per cardiology. Acute coronary syndrome with small non-ST elevation myocardial infarction suggested, nausea and vomiting may potentially be angina equivalent. He has atherosclerotic coronary artery disease. The patient is status post previous coronary artery bypass surgery in 2012 with left internal mammary artery graft to the left anterior descending coronary arteries, saphenous vein graft to the 1st diagonal, saphenous vein graft to the obtuse marginal, saphenous vein graft to the distal right coronary artery. Last cardiac catheterization was August 01, 2018. Reported left internal mammary graft to the left was patent. Anterior descending coronary artery and patent saphenous vein graft to the distal right coronary, patent saphenous graft to the obtuse marginal. Left ventricular ejection fraction by MUGA was 49% in 2019, so we are going to continue heparin. Metoprolol was initiated and wanted to re-evaluate with heart catheterization. This was discussed with the patient, potential hazards, and he would need to be transferred. He elected to go forward with cardiac catheterization procedure here at [facility]. Heart catheterization was done yesterday. Findings, severe 3 vessel coronary artery disease, total right coronary artery occlusion, total circumflex occlusion, total LAD occlusion, occlusion LAD is new compared to pre previous catheterization in 2017. He has a patent mammary graft to LAD, patent oblique marginal graft, patent right coronary artery vein graft, enlarged left ventricle with significant hypokinesis. Ejection fraction of 30%. No mitral regurgitation. No aortic stenosis. There were some atherosclerotic changes of the femoral artery. The patient's volume status is improving and we will continue current treatment. PHYSICAL EXAMINATION: Vital Signs: Today, sitting up, alert, oriented, remains afebrile, temperature 97.8 degrees, pulse 70, respirations 18, blood pressure 132/72. Pupils are equal and round. No distended neck veins. Lungs: Clear in all lung reinoso. Cardiovascular: Regular rhythm and rate without murmur or S3. Abdomen: Soft. Skin: Warm and dry. ASSESSMENT AND PLAN: 1. Intractable nausea on admission, presumably related to acute coronary syndrome. 2. Non ST-segment elevation myocardial infarction. Patient is status post left heart catheterization. He has severe 3 vessel disease, patent ORDONEZ to the LAD, so Cardiology recommending aggressive medical treatment. 3. Pulmonary edema secondary to congestive heart failure underlying end-stage renal disease. Ejection fraction is 30%. Continue to try and diurese dialyze some more fluid off. 4. History of coronary artery disease status post coronary bypass graft in the past and suspect he has underwent a non ST-segment elevation myocardial infarction on presentation. 5. End-stage renal disease on dialysis Tuesdays, , and Saturdays. Electrolytes, acid base and anemia seem to be within normal limits. LABORATORY DATA: Today, hematocrit 37, hemoglobin is 12. Electrolytes: Creatinine is 10.3, sodium 131, potassium 5.1, chloride 89, BUN 65. REVIEW OF CURRENT ORDERS: He is on Lopressor 25 mg twice a day, aspirin 81 mg a day, Lipitor 40 mg q.p.m., folic acid, vitamin B1 a day, Prinivil 10 mg daily, ranolazine ER 500 mg daily. cc: Alfredo Dsouza MD
[2019-07-01] MEDS: LIPITOR PO SCH (20:27)
[2019-07-02] MEDS: REGLAN PO ONE ×2 (02:00→02:04)
[2019-07-02] MEDS: PRILOSEC PO ONE ×2 (02:00→02:04)
[2019-07-02] MEDS: DUONEB (A & A) INH SCH ×3 (05:08→09:31)
[2019-07-02] MEDS: HUMALOG SUBQ SCH ×2 (07:15→10:51)
[2019-07-02] MEDS: ASPIRIN EC PO SCH (09:10)
[2019-07-02] MEDS: RANEXA PO SCH (09:10)
[2019-07-02] MEDS: PRINIVIL PO SCH (09:10)
[2019-07-02] MEDS: LOPRESSOR PO SCH (09:10)
[2019-07-02] MEDS: NEPHRO-VITE PO SCH (09:10)
[2019-07-02 11:25] VITALS: BP 115/64
--- NOTE | 2019-07-02 12:32 | NEPHROLOGY PROGRESS NOTE ---
DATE: 07/02/2019 SUBJECTIVE: He is sitting up, eating his lunch. No further nausea or chest tightness. No shortness of breath. OBJECTIVE: Vital Signs: Blood pressure 115/64, heart rate 83, respirations 16, afebrile. General: No acute distress. Skin: Warm and dry. Neck: Neck veins are not distended. Heart: Regular, with a gallop. Lungs: Equal. No crackles. Abdomen: Obese, soft, nontender. Bowel sounds present. Extremities: No edema, clubbing, or cyanosis. IMPRESSION: 1. Chronic kidney disease 5D. He is doing well. His next planned dialysis is tomorrow. No new labs today. 2. Nausea and chest tightness. Anginal equivalent. No further symptoms. I will increase his Ranexa to 1000 mg daily. cc: Abhishek Villanueva MD
--- NOTE | 2019-07-02 13:46 | DISCHARGE SUMMARY ---
ADMISSION DATE: 06/27/2019 DISCHARGE DATE: 07/02/2019 HISTORY OF PRESENT ILLNESS: He is a patient of Dr. Jim Fowler, also followed by Dr. Abhishek Villanueva. He presented with chest pain, shortness of breath, nausea, vomiting for over a day on 06/27/2019. This is a 64-year-old black man, past medical history of ischemic cardiomyopathy, ejection fraction 40 to 45 percent, and has had various bradyarrhythmias and heart blocks, diabetes mellitus type 2, hypertension, hyperlipidemia, prior CVA, end-stage renal disease on hemodialysis Tuesdays, , and Saturdays. Came in on 06/27/2019. Reports that he was having some burning substernal chest pain, nonradiating, had been constant for most of the day and seemed to get some relief after he had a bowel movement. He has chronic lower extremity edema which has not worsened. No abdominal distention. He did complain of a dry cough. No close contacts. ADMISSION DIAGNOSES: 1. Intractable nausea, vomiting, and some dyspnea. Thought he might have some dyspepsia from peptic ulcer disease. He was put on proton pump inhibitors. 2. Abnormal troponin level and not sure if this was secondary to his end-stage renal disease or is having some active cardiac ischemia. 3. Pulmonary edema, underlying ischemic cardiomyopathy and end-stage renal disease with some volume overload so they did diurese him. 4. Hypertension. 5. Diabetes mellitus type 2. 6. History of coronary artery disease and peripheral artery disease. HOSPITAL COURSE: Patient's chest x-ray on 06/28/2019 did show interval improvement from admission. Nephrology was consulted. He has underlying known chronic kidney disease stage 5D and they continued his routine hemodialysis treatment and tried to get him to a lower dry weight because of his pulmonary venous hypertension. His breathing improved. Cardiology was consulted. Abnormal troponin approximately 600 using high sensitivity assay, and he is status post coronary artery bypass grafting in 2013. Re-evaluation of coronary angiography approximately 11 months ago demonstrated bypass grafts to be patent, so symptomatically, patient continued to improve. He had a heart catheterization done on 06/30/2019 and he had severe 3-vessel disease, total right coronary artery occlusion, total circumflex occlusion, total LAD occlusion. The occlusion in the LAD is new compared to prior catheterization in 2017. He had a patent mammary graft to LAD, patent oblique marginal graft, patent right coronary artery graft, enlarged left ventricle with significant hypokinesis. Ejection fraction estimated at 30%. No mitral regurgitation. It is noted that he had atherosclerosis of the femoral artery. The patient's breathing continued to improve and continued to treat him medically. Chest x-ray on 07/01/2019, essential resolution of pulmonary edema, mild pulmonary venous congestion. His nausea and chest tightness thought were probably anginal equivalents. He was started on Ranexa 1000 mg a day. No further pain. Was requesting to go home so plan to discharge him home. DISCHARGE MEDICATIONS: He will be on aspirin 81 mg a day, Lipitor 40 mg a day, calcium carbonate 2000 mg p.o. before meals and at bedtime Prinivil 10 mg a day, metoprolol 25 mg twice a day, multivitamin once a day, Ranexa 1000 mg p.o. daily. FOLLOWUP: He will get follow-up with Dr. Villanueva for dialysis. cc: Alfredo Dsouza MD
--- NOTE | 2019-07-02 14:12 | PROGRESS NOTE ---
DATE: 07/02/2019 SUBJECTIVE: Patient continues without further chest discomfort or nausea. She continues without shortness of breath on room air. OBJECTIVE: Vital Signs: Blood pressure 115/64, heart rate 83, oxygen saturation 100%. Neck: There is no significant jugular venous distention. Chest: Clear to auscultation. Cardiac: Reveals a regular rate and rhythm without appreciable murmur or gallop. There is no evidence of peripheral edema. IMPRESSION: 1. Recent acute coronary syndrome with small [id number] myocardial infarction and subsequent cardiac catheterization dictating continued medical management and showing 3/4 bypass grafts to be patent. The severe multivessel coronary atherosclerosis. 2. Ischemic cardiomyopathy. 3. End-stage renal disease requiring chronic hemodialysis. 4. Type 2 diabetes mellitus, longstanding. 5. Hypertension. 6. Hyperlipidemia. RECOMMENDATIONS: 1. Continue metoprolol as tolerated. 2. Agree with increasing Ranexa to 1000 mg p.o. b.i.d. as tolerated. 3. Reasonable for patient to be discharged home given apparent stabilization. cc: Richmond Moon MD
[2019-07-02] MEDS ORDERED: TUMS PO SCH (16:00)
[2019-07-03] MEDS ORDERED: RANEXA PO SCH (09:00)
== END 2019-07-02 15:30 | disposition home or self-care (01) | DRG 280 ==
LOC: ED 14:49 → 3N 22:25 → SUATTDRO 22:25 → 1N 06-28 16:45 → 2N 06-30 11:13
PROVIDERS: ATTEND Emergency Medicine